=== PATIENT | female | born 1980 | race Caucasian/White ===

== ENCOUNTER 2016-04-08 10:30 | Inpatient (IN) | payer OTHER ==
[2016-04-08 11:30] VITALS: BMI 22.3
--- NOTE | 2016-04-08 12:12 | HP ---
COWS - Scale Resting Pulse: 1= [place] 81-100 Sweatin= Chills/Flushing Restless Observation: 3= Extraneous Movement Pupil Size: 2= Moderately Dilated Bone or Joint Aches: 4=Acute Joint/Muscle Pain Runny Nose/ Eye Tearin= Runny Nose/Eyes GI Upset > 30mins: 1= Stomach Cramp Tremor Observation: 2= Slight Tremor Visible Yawning Observation: 2= >3x During Session Anxiety or Irritability: 2=Irritable/Anxious Goose Flesh Skin: 0=Smooth Skin COWS Score: 20 Admission ROS S - HPI Chief Complaint: DETOX TX FOR HEROIN AND COCAINE DEPENDENCE Allergies/Adverse Reactions: Allergies Allergy/AdvReac Type Severity Reaction Status Date / Time Sulfa (Sulfonamide Allergy Hives Verified 04/08/16 11:46 Antibiotics) walnut Allergy Rash Verified 04/08/16 11:46 History of Present Illness: 35 Y/O FEMALE WITH A HX OF HEROIN AND COCAINE DEPENDENCE SEEKING DETOX TX. PT HAS PREVOUS EPISODES OF DRUG TX. Exam Limitations: No Limitations - Ebola screening Have you traveled outside of the country in the last 21 days: No Have you had contact with anyone from an Ebola affected area: No Have you been sick,other than usual withdrawal symptoms: No Do you have a fever: No - Review of Systems Constitutional: Chills, Night Sweats, Changes in sleep, Unintentional Wgt. Loss EENT: reports: Tearing, Nose Congestion, Dental Problems (UPPER PARTIAL DENTURES ) Respiratory: reports: No Symptoms reported Cardiac: reports: No Symptoms Reported GI: reports: Nausea : reports: No Symptoms Reported Musculoskeletal: reports: Back Pain, Joint Pain, Muscle Pain Integumentary: reports: Bruising (HANDS WITH IVD USE TRACKS) Neuro: reports: Tingling, Dizziness Endocrine: reports: No Symptoms Reported Hematology: reports: Anemia Psychiatric: reports: Orientated x3, Anxious, Depressed (ANX ANXIETY) Other Systems: Reviewed and Negative Patient History - Patient Medical History Hx Anemia: No Hx Asthma: No Hx Chronic Obstructive Pulmonary Disease (COPD): No Hx Cancer: No Hx Cardiac Disorders: No Hx Congestive Heart Failure: No Hx Hypertension: No Hx Hypercholesterolemia: No Hx Pacemaker: No HX Cerebrovascular Accident: No Hx Seizures: No Hx Dementia: No Hx Diabetes: No Hx Gastrointestinal Disorders: No Hx Liver Disease: No Hx Genitourinary Disorders: No Hx Sexually Transmitted Disorders: No Hx Renal Disease (ESRD): No Hx Thyroid Disease: No Hx Human Immunodeficiency Virus (HIV): No Hx Hepatitis C: Yes (NO TREATMENT) Hx Depression: Yes (NO MEDS) Hx Suicide Attempt: Yes (Tried to hang herself 8 yrs ago;DENIES CURRENT S/I) Hx Bipolar Disorder: No Hx Schizophrenia: No - Patient Surgical History Past Surgical History: Yes Hx Neurologic Surgery: No Hx Cataract Extraction: No Hx Cardiac Surgery: No Hx Lung Surgery: No Hx Breast Surgery: No Hx Breast Biopsy: No Hx Abdominal Surgery: No Hx Appendectomy: No Hx Cholecystectomy: No Hx Genitourinary Surgery: No Hx Section: Yes (17 YRS AGO) Hx Orthopedic Surgery: No Anesthesia Reaction: No - PPD History Previous Implant?: Yes Documented Results: Positive w/o proof Implanted On Prior [facility] Admission?: No Date: 11/26/15 Results: 0MM PPD to be Administered?: No - Reproductive History Patient is a Female of Child Bearing Age (11 -55 yrs old): Yes Last Menstrual Period: 03/10/16 Patient : No - Smoking Cessation Smoking history: Current every day smoker Have you smoked in the past 12 months: Yes Aproximately how many cigarettes per day: 20 Cigars Per Day: 0 Hx Chewing Tobacco Use: No Initiated information on smoking cessation: Yes 'Breaking Loose' booklet given: 04/08/16 - Substance & Tx. History Hx Alcohol Use: No (DENIES) Hx Substance Use: Yes (HEROIN/STREET METHADONE/COCAINE) Substance Use Type: Cocaine, Heroin, Opiates Hx Substance Use Treatment: Yes ([facility]-DETOX) - Substances Abused Heroin Route: Injection Frequency: Daily Amount used: 10-12 BAGS Age of first use: 15 Date of Last Use: 04/08/16 Cocaine Route: Injection Frequency: Daily Amount used: 6-8 BAGS Age of first use: 20 Date of Last Use: 04/08/16 Family Disease History - Family Disease History Family Disease History: Diabetes: Mother (HTN), Other: Mother Admission Physical Exam BHS - Vital Signs Vital Signs: Vital Signs - 24 hr 04/08/16 11:27 Temperature 96.4 F L Pulse Rate 88 Respiratory 19 Rate Blood Pressure 127/91 - Physical General Appearance: Yes: Moderate Distress, Irritable, Anxious HEENTM: Yes: EOMI, Normocephalic, GENIE, Pharynx Normal Respiratory: Yes: Chest Non-Tender, Lungs Clear, Normal Breath Sounds, No Respiratory Distress Neck: Yes: Supple, Trachea in good position Breast: Yes: Breast Exam Deferred Cardiology: Yes: Regular Rhythm, Regular Rate, S1, S2 Abdominal: Yes: Normal Bowel Sounds, Non Tender, Soft Genitourinary: Yes: Other (N/C) Back: Yes: Within Normal Limits Musculoskeletal: Yes: full range of Motion, Gait Steady Extremities: Yes: Normal Range of Motion, Non-Tender Neurological: Yes: cost control analyst II-XII NML intact, Fully Oriented, Alert, Motor Strength 5/5 Integumentary: Yes: Dry, Warm, Track Wilson Lymphatic: Yes: Within Normal Limits - Diagnostic (1) Opioid dependence with withdrawal Current Visit: Yes Status: Acute (2) Hepatitis C carrier Current Visit: Yes Status: Chronic (3) Cocaine dependence, uncomplicated Current Visit: Yes Status: Acute Cleared for Admission [facility] - Detox or Rehab [facility] Level of Care: Medically Managed Detox Regimen/Protocol: Methadone [facility] Breath Alcohol Content Breath Alcohol Content: 0 Urine Pregancy Test - Result Urine Test Results: Negative- NO Line Present Urine Drug Screen - Results Drug Screen Negative: No Urine Drug Screen Results: LENORE-Cocaine, OPI-Opiates, MET-Methamphetamine, MTD- Methadone
[2016-04-08] MEDS ORDERED: MENTHOL/PHENOL 1 EACH UD MM PRN (12:18)
[2016-04-08] MEDS ORDERED: MAGNESIUM CITRATE 300 ML BOTTLE PO PRN (12:18)
[2016-04-08] MEDS ORDERED: LOPERAMIDE HCL 2 MG CAPSULE PO PRN (12:18)
[2016-04-08] MEDS ORDERED: guaiFENesin/D-METHORPHAN HB 10 ML UNIT-DOSE CUPS PO PRN (12:18)
[2016-04-08] MEDS ORDERED: ACETAMINOPHEN 325 MG TABLET (FP) PO PRN (12:18)
[2016-04-08] MEDS ORDERED: MAGNESIUM HYDROX 2400MG/30ML ORAL SUSPENSION 30 ML CUP PO PRN (12:18)
[2016-04-08] MEDS ORDERED: P-EPHED 60MG/TRIPROLIDI 2.5MG TABLET PO PRN (12:18)
[2016-04-08] MEDS ORDERED: NICOTINE POLACRILEX 4 MG GUM BUC PRN (12:18)
[2016-04-08] MEDS ORDERED: IBUPROFEN 400 MG TABLET (FP) PO PRN (12:18)
[2016-04-08] MEDS ORDERED: MAG HYDROX/AL HYDROX/SIMETH 30 ML UNIT-DOSE CUP PO PRN (12:18)
[2016-04-08] MEDS ORDERED: METHADONE HCL 10 MG TABLET (FOR DETOX USE ONLY) PO ONE ×2 (13:05→23:00)
[2016-04-08] MEDS: diazePAM 5 MG TABLET PO PRN ×2 (13:46→22:27)
[2016-04-08] MEDS: NICOTINE 21 MG/24 HOURS TOPICAL PATCH TD SCH (13:47)
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
[2016-04-08] MEDS: ESCITALOPRAM OXALATE 10 MG TABLET (FP) PO SCH (15:10)
[2016-04-08] MEDS: ARIPiprazole 15 MG TABLET PO SCH (15:10)
--- NOTE | 2016-04-08 15:48 | EKG ---
Test Reason : Blood Pressure : / mmHG Vent. Rate : 079 BPM Atrial Rate : 079 BPM P-R Int : 136 ms QRS Dur : 094 ms QT Int : 412 ms P-R-T Axes : 074 077 032 degrees QTc Int : 472 ms NORMAL SINUS RHYTHM NORMAL ECG NO PREVIOUS ECGS AVAILABLE Confirmed by LIO BECKER, YAJAIRA ([id number]) on 04/08/2016 3:48:20 PM Referred By: Valentin Tenorio Confirmed By:YAJAIRA VACA MD
[2016-04-08 16:30] LABS: URINE APPEARANCE CLEAR; URINE BILIRUBIN NEGATIVE (NEGATIVE); URINE BLOOD NEGATIVE (NEGATIVE); URINE COLOR YELLOW; URINE GLUCOSE (UA) NEGATIVE (NEGATIVE); URINE KETONE NEGATIVE (NEGATIVE); URINE LEUK ESTERASE NEGATIVE (NEGATIVE); URINE NITRITE NEGATIVE (NEGATIVE); URINE PROTEIN NEGATIVE (NEGATIVE); URINE UROBILINOGEN NEGATIVE E.U./dl (0.2-1.0)
[2016-04-08] MEDS: THIAMINE HCL 100 MG TABLET (FP) PO SCH (22:27)
[2016-04-08] MEDS: QUEtiapine FUMARATE 100 MG TABLET (FP) PO SCH (22:28)
[2016-04-09] MEDS: diazePAM 5 MG TABLET PO PRN ×3 (08:36→22:21)
[2016-04-09 09:47] LABS: MCH 31.1 pg (25.7-33.7); MCHC 33.5 g/dl (32.0-36.0); MEAN CELL VOLUME 92.7 fl (80-96); MEAN PLT VOLUME 9.6 fl (7.5-11.1); PLATELET COUNT 159 K/MM3 (134-434); RDW 14.5 % (11.6-15.6); WHITE BLOOD COUNT 9.8 K/mm3 (4.0-10.0)
[2016-04-09] MEDS ORDERED: METHADONE HCL 10 MG TABLET (FOR DETOX USE ONLY) PO ONE (10:00)
[2016-04-09 10:18] LABS: ALBUMIN 4.3 g/dl (3.4-5.0); ALK PHOS 110 U/L (45-117); ANION GAP 8 (8-16); BILIRUBIN,TOTAL 1.2 mg/dL (0.2-1.0); CALCIUM 9.5 mg/dL (8.5-10.1); CO2 29 mmol/L (21-32); CREATININE 0.9 mg/dL (0.55-1.02); GLUCOSE,RANDOM 145 mg/dL (74-106); SGOT/AST 40 U/L (15-37); SGPT/ALT 39 U/L (12-78); TOT PROT 7.9 g/dl (6.4-8.2)
[2016-04-09] MEDS: ARIPiprazole 15 MG TABLET PO SCH (10:21)
[2016-04-09] MEDS: NICOTINE 21 MG/24 HOURS TOPICAL PATCH TD SCH (10:21)
[2016-04-09] MEDS: ESCITALOPRAM OXALATE 10 MG TABLET (FP) PO SCH (10:21)
[2016-04-09] MEDS: PRENATAL VITAMINS W/ FOLIC ACID TABLET (FP) PO SCH (10:21)
[2016-04-09] MEDS ORDERED: BISACODYL 5 MG TABLET.DR (FP) PO PRN (10:37)
--- NOTE | 2016-04-09 10:41 | PN ---
BHS COWS - Scale Resting Pulse: 1= [place] 81-100 Sweatin=Flushed/Facial Moisture Restless Observation: 1= Difficult to Sit Still Pupil Size: 0= Normal to Room Light Bone or Joint Aches: 2= Severe Diffuse Aches Runny Nose/ Eye Tearin= Runny Nose/Eyes GI Upset > 30mins: 1= Stomach Cramp Tremor Observation of Outstretched Hands: 2= Slight Tremor Visible Yawning Observation: 2= >3x During Session Anxiety or Irritability: 2=Irritable/Anxious Goose Flesh Skin: 3=Piloerection COWS Score: 18 BHS Progress Note (SOAP) Subjective: agitation cold sweats shakes body aches chills interrupted sleep constipation Objective: 04/09/16 10:39 Vital Signs Temperature 98.2 F 04/09/16 09:40 Pulse Rate 90 04/09/16 09:40 Respiratory Rate 18 04/09/16 09:40 Blood Pressure 134/83 04/09/16 09:40 O2 Sat by Pulse Oximetry (%) Laboratory Tests 04/08/16 04/09/16 04/09/16 15:00 06:00 06:00 WBC 9.8 D RBC 4.87 Hgb 15.1 Hct 45.2 MCV 92.7 MCHC 33.5 RDW 14.5 Plt Count 159 MPV 9.6 Sodium 139 Potassium 4.2 Chloride 102 Carbon Dioxide 29 Anion Gap 8 BUN 19 H D Creatinine 0.9 Creat Clearance w eGFR > 60 Random Glucose 145 H D Calcium 9.5 Total Bilirubin 1.2 H D AST 40 H ALT 39 Alkaline Phosphatase 110 Total Protein 7.9 Albumin 4.3 D Urine Color Yellow Urine Appearance Clear Urine pH 5.0 Ur Specific [place] 1.021 Urine Protein Negative Urine Glucose (UA) Negative Urine Ketones Negative Urine Blood Negative Urine Nitrite Negative Urine Bilirubin Negative Urine Urobilinogen Negative Ur Leukocyte Esterase Negative awake/alert ambulating no acute distress Assessment: 04/09/16 10:40 withdrawal sx Plan: continue detox increase fluids dulcolax prn
[2016-04-09] MEDS: QUEtiapine FUMARATE 100 MG TABLET (FP) PO SCH (22:21)
[2016-04-09] MEDS: THIAMINE HCL 100 MG TABLET (FP) PO SCH (22:21)
[2016-04-09] MEDS: diphenhydrAMINE HCL 50 MG CAPSULE PO PRN (22:21)
[2016-04-10] MEDS: diazePAM 5 MG TABLET PO PRN ×3 (09:05→19:42)
--- NOTE | 2016-04-10 09:50 | PN ---
BHS COWS - Scale Resting Pulse: 1= [place] 81-100 Sweatin= Chills/Flushing Restless Observation: 1= Difficult to Sit Still Pupil Size: 1= Pupils >than Normal Bone or Joint Aches: 2= Severe Diffuse Aches Runny Nose/ Eye Tearin= Nasal Congestion GI Upset > 30mins: 1= Stomach Cramp Tremor Observation of Outstretched Hands: 1= Tremor [place], Not Seen Yawning Observation: 0= None Anxiety or Irritability: 1=Feels Anxious/Irritable Goose Flesh Skin: 0=Smooth Skin COWS Score: 10 BHS Progress Note (SOAP) Subjective: better, interrupted sleep, sweats, lbp Objective: 04/10/16 09:49 Vital Signs Temperature 97.7 F 04/10/16 06:34 Pulse Rate 73 04/10/16 06:34 Respiratory Rate 18 04/10/16 06:34 Blood Pressure 120/84 04/10/16 06:34 O2 Sat by Pulse Oximetry (%) Laboratory Tests 04/08/16 04/09/16 04/09/16 15:00 06:00 06:00 WBC 9.8 D RBC 4.87 Hgb 15.1 Hct 45.2 MCV 92.7 MCHC 33.5 RDW 14.5 Plt Count 159 MPV 9.6 Sodium 139 Potassium 4.2 Chloride 102 Carbon Dioxide 29 Anion Gap 8 BUN 19 H D Creatinine 0.9 Creat Clearance w eGFR > 60 Random Glucose 145 H D Calcium 9.5 Total Bilirubin 1.2 H D AST 40 H ALT 39 Alkaline Phosphatase 110 Total Protein 7.9 Albumin 4.3 D Urine Color Yellow Urine Appearance Clear Urine pH 5.0 Ur Specific [place] 1.021 Urine Protein Negative Urine Glucose (UA) Negative Urine Ketones Negative Urine Blood Negative Urine Nitrite Negative Urine Bilirubin Negative Urine Urobilinogen Negative Ur Leukocyte Esterase Negative RPR Titer 04/09/16 06:00 WBC RBC Hgb Hct MCV MCHC RDW Plt Count MPV Sodium Potassium Chloride Carbon Dioxide Anion Gap BUN Creatinine Creat Clearance w eGFR Random Glucose Calcium Total Bilirubin AST ALT Alkaline Phosphatase Total Protein Albumin Urine Color Urine Appearance Urine pH Ur Specific [place] Urine Protein Urine Glucose (UA) Urine Ketones Urine Blood Urine Nitrite Urine Bilirubin Urine Urobilinogen Ur Leukocyte Esterase RPR Titer Nonreactive 04/10/16 11:58 pt aox3 in nad Assessment: 04/10/16 09:49 withdrawl sx;s 04/10/16 11:58 04/10/16 11:58 lbp Plan: cont. detox increase fluids lidopatch/d
[2016-04-10] MEDS ORDERED: METHADONE HCL 5 MG TABLET (FOR DETOX USE ONLY) PO ONE (10:00)
[2016-04-10] MEDS: ARIPiprazole 15 MG TABLET PO SCH (10:10)
[2016-04-10] MEDS: ESCITALOPRAM OXALATE 10 MG TABLET (FP) PO SCH (10:11)
[2016-04-10] MEDS: NICOTINE 21 MG/24 HOURS TOPICAL PATCH TD SCH (10:11)
[2016-04-10] MEDS: PRENATAL VITAMINS W/ FOLIC ACID TABLET (FP) PO SCH (10:12)
[2016-04-10] MEDS ORDERED: LIDOCAINE 5% TOPICAL PATCH TP ONE (10:14)
[2016-04-10] MEDS: THIAMINE HCL 100 MG TABLET (FP) PO SCH (22:15)
[2016-04-10] MEDS: QUEtiapine FUMARATE 100 MG TABLET (FP) PO SCH (22:15)
[2016-04-10] MEDS: diphenhydrAMINE HCL 50 MG CAPSULE PO PRN (22:16)
[2016-04-11] MEDS: diazePAM 5 MG TABLET PO PRN (07:50)
[2016-04-11] MEDS ORDERED: METHADONE HCL 5 MG TABLET (FOR DETOX USE ONLY) PO ONE (10:00)
[2016-04-11] MEDS: LIDOCAINE 5% TOPICAL PATCH TP SCH (10:08)
[2016-04-11] MEDS: PRENATAL VITAMINS W/ FOLIC ACID TABLET (FP) PO SCH (10:09)
[2016-04-11] MEDS: ARIPiprazole 15 MG TABLET PO SCH (10:09)
[2016-04-11] MEDS: NICOTINE 21 MG/24 HOURS TOPICAL PATCH TD SCH (10:10)
[2016-04-11] MEDS: ESCITALOPRAM OXALATE 10 MG TABLET (FP) PO SCH (10:10)
--- NOTE | 2016-04-11 12:28 | PN ---
BHS Progress Note (SOAP) Subjective: Interrupted sleep, Night Sweating, Anxious, Nausea, Back Ache. Objective: Pt. A & O X 3, Observed Ambulating on Unit. 04/11/16 12:25 Vital Signs Temperature 97.3 F L 04/11/16 09:38 Pulse Rate 115 H 04/11/16 09:38 Respiratory Rate 18 04/11/16 09:38 Blood Pressure 141/79 04/11/16 09:38 O2 Sat by Pulse Oximetry (%) Laboratory Last Values WBC 9.8 K/mm3 (4.0-10.0) D 04/09/16 06:00 RBC 4.87 M/mm3 (3.60-5.2) 04/09/16 06:00 Hgb 15.1 GM/dL (10.7-15.3) 04/09/16 06:00 Hct 45.2 % (32.4-45.2) 04/09/16 06:00 MCV 92.7 fl (80-96) 04/09/16 06:00 MCHC 33.5 g/dl (32.0-36.0) 04/09/16 06:00 RDW 14.5 % (11.6-15.6) 04/09/16 06:00 Plt Count 159 K/MM3 (134-434) 04/09/16 06:00 MPV 9.6 fl (7.5-11.1) 04/09/16 06:00 Sodium 139 mmol/L (136-145) 04/09/16 06:00 Potassium 4.2 mmol/L (3.5-5.1) 04/09/16 06:00 Chloride 102 mmol/L (98-107) 04/09/16 06:00 Carbon Dioxide 29 mmol/L (21-32) 04/09/16 06:00 Anion Gap 8 (8-16) 04/09/16 06:00 BUN 19 mg/dL (7-18) H D 04/09/16 06:00 Creatinine 0.9 mg/dL (0.55-1.02) 04/09/16 06:00 Creat Clearance w eGFR > 60 (>60) 04/09/16 06:00 Random Glucose 145 mg/dL (74-106) H D 04/09/16 06:00 Calcium 9.5 mg/dL (8.5-10.1) 04/09/16 06:00 Total Bilirubin 1.2 mg/dL (0.2-1.0) H D 04/09/16 06:00 AST 40 U/L (15-37) H 04/09/16 06:00 ALT 39 U/L (12-78) 04/09/16 06:00 Alkaline Phosphatase 110 U/L (45-117) 04/09/16 06:00 Total Protein 7.9 g/dl (6.4-8.2) 04/09/16 06:00 Albumin 4.3 g/dl (3.4-5.0) D 04/09/16 06:00 Urine Color Yellow 04/08/16 15:00 Urine Appearance Clear 04/08/16 15:00 Urine pH 5.0 (5.0-8.0) 04/08/16 15:00 Ur Specific [place] 1.021 (1.001-1.035) 04/08/16 15:00 Urine Protein Negative (NEGATIVE) 04/08/16 15:00 Urine Glucose (UA) Negative (NEGATIVE) 04/08/16 15:00 Urine Ketones Negative (NEGATIVE) 04/08/16 15:00 Urine Blood Negative (NEGATIVE) 04/08/16 15:00 Urine Nitrite Negative (NEGATIVE) 04/08/16 15:00 Urine Bilirubin Negative (NEGATIVE) 04/08/16 15:00 Urine Urobilinogen Negative E.U./dl (0.2-1.0) 04/08/16 15:00 Ur Leukocyte Esterase Negative (NEGATIVE) 04/08/16 15:00 RPR Titer Nonreactive (NONREACTIVE) 04/09/16 06:00 LABS NOTED. Assessment: 04/11/16 12:26 WITHDRAWAL SYMPTOMS. Plan: CONTINUE DETOX. ADVISED PT. TO FOLLOW-UP WITH [facility] STRIPPER AFTER DISCHARGE FROM DETOX FOR GENERAL MEDICAL ASSESSMENT AND FOR ABNORMAL LAB VALUES.
[2016-04-11] MEDS: hydrOXYzine PAMOATE 50 MG CAPSULE (FP) PO PRN ×2 (18:16→22:27)
[2016-04-11] MEDS: QUEtiapine FUMARATE 100 MG TABLET (FP) PO SCH (22:27)
[2016-04-11] MEDS: THIAMINE HCL 100 MG TABLET (FP) PO SCH (22:27)
[2016-04-12] MEDS: hydrOXYzine PAMOATE 50 MG CAPSULE (FP) PO PRN (08:48)
[2016-04-12] MEDS ORDERED: METHADONE HCL 10 MG TABLET (FOR DETOX USE ONLY) PO ONE (10:00)
[2016-04-12] MEDS: ESCITALOPRAM OXALATE 10 MG TABLET (FP) PO SCH (10:28)
[2016-04-12] MEDS: ARIPiprazole 15 MG TABLET PO SCH (10:28)
[2016-04-12] MEDS: PRENATAL VITAMINS W/ FOLIC ACID TABLET (FP) PO SCH (10:28)
[2016-04-12] MEDS: LIDOCAINE 5% TOPICAL PATCH TP SCH (10:31)
[2016-04-12] MEDS: NICOTINE 21 MG/24 HOURS TOPICAL PATCH TD SCH (10:31)
--- NOTE | 2016-04-12 10:42 | PN ---
BHS Progress Note (SOAP) Subjective: POOR SLEEP, ANXIOUS, SHAKY Objective: 04/12/16 10:42 Laboratory Tests 04/08/16 04/09/16 04/09/16 15:00 06:00 06:00 WBC 9.8 D RBC 4.87 Hgb 15.1 Hct 45.2 MCV 92.7 MCHC 33.5 RDW 14.5 Plt Count 159 MPV 9.6 Sodium 139 Potassium 4.2 Chloride 102 Carbon Dioxide 29 Anion Gap 8 BUN 19 H D Creatinine 0.9 Creat Clearance w eGFR > 60 Random Glucose 145 H D Calcium 9.5 Total Bilirubin 1.2 H D AST 40 H ALT 39 Alkaline Phosphatase 110 Total Protein 7.9 Albumin 4.3 D Urine Color Yellow Urine Appearance Clear Urine pH 5.0 Ur Specific [place] 1.021 Urine Protein Negative Urine Glucose (UA) Negative Urine Ketones Negative Urine Blood Negative Urine Nitrite Negative Urine Bilirubin Negative Urine Urobilinogen Negative Ur Leukocyte Esterase Negative RPR Titer 04/09/16 06:00 WBC RBC Hgb Hct MCV MCHC RDW Plt Count MPV Sodium Potassium Chloride Carbon Dioxide Anion Gap BUN Creatinine Creat Clearance w eGFR Random Glucose Calcium Total Bilirubin AST ALT Alkaline Phosphatase Total Protein Albumin Urine Color Urine Appearance Urine pH Ur Specific [place] Urine Protein Urine Glucose (UA) Urine Ketones Urine Blood Urine Nitrite Urine Bilirubin Urine Urobilinogen Ur Leukocyte Esterase RPR Titer Nonreactive Vital Signs - 24 hr 04/11/16 04/11/16 04/11/16 15:21 20:28 22:39 Temperature 98.8 F 98.1 F 98.6 F Pulse Rate 93 H 76 109 H Respiratory 18 16 20 Rate Blood Pressure 136/78 120/81 135/77 04/12/16 04/12/16 04/12/16 00:30 03:30 06:00 Temperature 97.7 F Pulse Rate 81 Respiratory 18 18 18 Rate Blood Pressure 123/67 Assessment: 04/12/16 10:42 ONGOING WITHDRAWAL Plan: CONTINUE DETOX PROTOCOL
[2016-04-12] MEDS: THIAMINE HCL 100 MG TABLET (FP) PO SCH (22:33)
[2016-04-12] MEDS: QUEtiapine FUMARATE 100 MG TABLET (FP) PO SCH (22:33)
[2016-04-13] MEDS ORDERED: METHADONE HCL 5 MG TABLET (FOR DETOX USE ONLY) PO ONE (06:00)
--- NOTE | 2016-04-13 08:34 | PN ---
S Progress Note (SOAP) Subjective: ALERT,NO COMPLAINT Objective: 04/13/16 08:33 Vital Signs Temperature 98.2 F 04/13/16 06:49 Pulse Rate 88 04/13/16 06:49 Respiratory Rate 18 04/13/16 06:49 Blood Pressure 101/69 04/13/16 06:49 O2 Sat by Pulse Oximetry (%) Assessment: 04/13/16 08:33 DETOX COMPLETED,NO WITHDRAWAL SYMPTOM Plan: DISCHARGE TODAY,FOLLOW UP WITH AFTER CARE PROGRAM ARRANGEMENT
--- NOTE | 2016-04-13 08:39 | DS ---
[facility] Detox Discharge Summary Admission Date: 04/08/16 Discharge Date: 04/13/16 - History Present History: Cocaine Dependence, Opioid Dependence Additional Comments: FOLLOW UP WITH AFTER CARE PROGRAM ARRANGEMENT Pertinent Past History: HEPATITIS C DEPRESSION - Physical Exam Results Vital Signs: Vital Signs Temperature 98.2 F 04/13/16 06:49 Pulse Rate 88 04/13/16 06:49 Respiratory Rate 18 04/13/16 06:49 Blood Pressure 101/69 04/13/16 06:49 O2 Sat by Pulse Oximetry (%) Pertinent Admission Physical Exam Findings: WITHDRAWAL SYMPTOM - Treatment Hospital Course: Detox Protocol Followed, Detoxed Safely, Responded well, Discharged Condition Good Patient has Accepted a Rehab Referral to: DECLNED - Medication Discharge Medications: Ambulatory Orders Aripiprazole [Abilify -] 10 mg PO DAILY #30 tablet 03/19/14 Escitalopram Oxalate [Lexapro -] 10 mg PO DAILY #30 tablet 11/25/15 Quetiapine Fumarate [Seroquel] 100 tab PO HS #30 tablet 11/25/15 Aripiprazole [Abilify -] 15 mg PO DAILY #30 tablet 04/08/16 Escitalopram Oxalate [Lexapro -] 10 mg PO DAILY #30 tablet 04/08/16 Quetiapine Fumarate [Seroquel] 100 mg PO HS #30 tablet 04/08/16 - AMA Did Patient Leave Against Medical Advice: No
[2016-04-13 10:11] VITALS: BP 131/80; PULSE 106; TEMP 98.6
== END 2016-04-13 09:10 | disposition home or self-care (01) | DRG 773 ==
LOC: YASAS 10:30 → Y6N 11:59
PROVIDERS: ADMIT Internal Medicine Addiction Medicine; ATTEND Internal Medicine Addiction Medicine
PROC: HZ2ZZZZ Detoxification Services for Substance Abuse Treatment (ICD-10-PCS; principal; 2016-04-13)
DX: F11.23 Opioid dependence with withdrawal (principal); F14.20 Cocaine dependence, uncomplicated; B19.20 Unspecified viral hepatitis C without hepatic coma; B18.2 Chronic viral hepatitis C
CPT/HCPCS: 36415; 71020-TC; 80053; 81003; 85027; 86593; 93005; 93010

== ENCOUNTER 2016-12-10 14:57 | Inpatient (IN) | payer OTHER ==
[2016-12-10 17:42] VITALS: BMI 21.2
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
[2016-12-10] MEDS ORDERED: MAG HYDROX/AL HYDROX/SIMETH 30 ML UNIT-DOSE CUP PO PRN (20:37)
[2016-12-10] MEDS ORDERED: NICOTINE POLACRILEX 2 MG GUM BUC PRN (20:37)
[2016-12-10] MEDS ORDERED: MAGNESIUM HYDROX 2400MG/30ML ORAL SUSPENSION 30 ML CUP PO PRN (20:37)
[2016-12-10] MEDS ORDERED: LOPERAMIDE HCL 2 MG CAPSULE PO PRN (20:37)
[2016-12-10] MEDS ORDERED: P-EPHED 60MG/TRIPROLIDI 2.5MG TABLET PO PRN (20:37)
[2016-12-10] MEDS ORDERED: MENTHOL/PHENOL 1 EACH UD MM PRN (20:37)
[2016-12-10] MEDS ORDERED: ACETAMINOPHEN 325 MG TABLET (FP) PO PRN (20:37)
[2016-12-10] MEDS ORDERED: METHADONE HCL 10 MG TABLET (FOR DETOX USE ONLY) PO ONE ×2 (20:37→23:00)
[2016-12-10] MEDS ORDERED: IBUPROFEN 400 MG TABLET (FP) PO PRN (20:37)
[2016-12-10] MEDS ORDERED: MAGNESIUM CITRATE 300 ML BOTTLE PO PRN (20:37)
[2016-12-10] MEDS: diazePAM 5 MG TABLET PO PRN (21:24)
[2016-12-10] MEDS: NICOTINE 14 MG/24 HOURS TOPICAL PATCH TD SCH (21:38)
[2016-12-10] MEDS: OFLOXACIN 0.3% OPHTHALMIC SOLUTION 5 ML BOTTLE OD SCH (22:28)
[2016-12-10] MEDS: THIAMINE HCL 100 MG TABLET (FP) PO SCH (22:29)
[2016-12-10 23:20] LABS: URINE APPEARANCE CLOUDY; URINE BILIRUBIN NEGATIVE (NEGATIVE); URINE BLOOD NEGATIVE (NEGATIVE); URINE COLOR DKYELLOW; URINE GLUCOSE (UA) NEGATIVE (NEGATIVE); URINE KETONE NEGATIVE (NEGATIVE); URINE NITRITE NEGATIVE (NEGATIVE); URINE PROTEIN NEGATIVE (NEGATIVE); URINE UROBILINOGEN NEGATIVE mg/dL (0.2-1.0)
[2016-12-10 23:25] LABS: URINE LEUK ESTERASE 3+ (NEGATIVE)
[2016-12-10 23:41] LABS: CALCIUM OXALATE CRYSTALS RARE /hpf (NONE SEEN); URINE BACTERIA MODERATE /hpf (NONE SEEN); URINE MUCUS FEW; URINE RBC 9 /hpf (0-3); URINE WBC 36 /hpf (3-5)
[2016-12-11] MEDS: OFLOXACIN 0.3% OPHTHALMIC SOLUTION 5 ML BOTTLE OD SCH ×6 (01:23→20:02)
--- NOTE | 2016-12-11 07:35 | CONSULT ---
[facility] Psychiatric Consult - Data Date of interview: 12/11/16 Admission source: Silvina Identifying data: This is 36 uears olkd female with nistory of psychiatric admsision, history of MDD, intoxicated wwith: Opioids, Cocaine, Cannabis, Xanax and Nicotine Substance Abuse History: - Smoking Cessation. Smoking history: Current every day smoker. Have you smoked in the past 12 months: Yes. Aproximately how many cigarettes per day: 10. Cigars Per Day: 0. Hx Chewing Tobacco Use: No. Initiated information on smoking cessation: Yes. 'Breaking Loose' booklet given : 12/10/16. - Substances Abused. Heroin. Route: Injection. Frequency: Daily. Amount used: 15-20 bags. Age of first use: 15. Date of Last Use: 12/10. Non-Rx Methadone. Route: Oral. Frequency: 1-2 times per week. Amount used: 40mg. Age of first use: 26. Date of Last Use: 12/07/16. Cocaine. Route: Injection. Frequency: Daily. Amount used: $70- $80. Age of first use: 29. Date of Last Use: 12/10/16. Marijuana/Hashish. Route: Smoking. Frequency: Daily. Amount used: $20. Age of first use: 15. Date of Last Use: 12/10/16 Medical History: HepC+, OVARES POLYCYSRECTOMY HISTORY, HEMORRHOPIDS HISTORY Psychiatric History: Patient reports history of MDD, PTSD, reports taking priorm to admission: Abilify 10mg poqd. Seroquel 100mg po qhs. Lexapro 10mg poqd Physical/Sexual Abuse/Trauma History: Denies Additional Comment: Urine Drug Screen Results: LENORE-Cocaine, OPI-Opiates, MTD- Methadone Mental Status Exam - Mental Status Exam Alert and Oriented to: Person Patient Appearance: Unkempt Mood: Sad Affect: Flat Speech Pattern: Appropriate Voice Loudness: Mildly Soft/Quiet Thought Process: Goal Oriented Thought Disorder: Being Controlled Hallucinations: Denies Suicidal Ideation: Denies Homicidal Ideation: Denies Sleep: Difficulty falling asleep Appetite: Fair Muscle strength/Tone: Normal Gait/Station: Shuffling Additional Comments: Abilify 10mg poqd. Seroquel 100mg po qhs. Lexapro 10mg poqd Psychiatric Findings - Problem List ([place] 1, 2,3) (1) Benzodiazepine dependence Current Visit: No Status: Acute (2) Cannabis dependence Current Visit: No Status: Acute (3) Cocaine dependence, uncomplicated Current Visit: No Status: Acute (4) Opioid dependence with withdrawal Current Visit: No Status: Acute (5) Depression Current Visit: No Status: Chronic Qualifiers: (6) MDD (major depressive disorder), recurrent episode, severe Current Visit: No Status: Chronic (7) PTSD (post-traumatic stress disorder) Current Visit: No Status: Chronic - Initial Treatment Plan Initial Treatment Plan: Abilify 10mg poqd. Seroquel 100mg po qhs. Lexapro 10mg poqd
[2016-12-11 09:40] LABS: MCH 29.5 pg (25.7-33.7); MCHC 32.8 g/dl (32.0-36.0); MEAN CELL VOLUME 90.1 fl (80-96); MEAN PLT VOLUME 8.6 fl (7.5-11.1); PLATELET COUNT 222 K/MM3 (134-434); RDW 14.8 % (11.6-15.6); WHITE BLOOD COUNT 7.2 K/mm3 (4.0-10.0)
[2016-12-11] MEDS ORDERED: METHADONE HCL 10 MG TABLET (FOR DETOX USE ONLY) PO ONE (10:00)
[2016-12-11 10:06] LABS: ALBUMIN 3.3 g/dl (3.4-5.0); ALK PHOS 147 U/L (45-117); ANION GAP 3 (8-16); BILIRUBIN,TOTAL 0.8 mg/dL (0.2-1.0); CALCIUM 9.3 mg/dL (8.5-10.1); CO2 32 mmol/L (21-32); CREATININE 0.8 mg/dL (0.55-1.02); GLUCOSE,RANDOM 90 mg/dL (74-106); SGOT/AST 29 U/L (15-37); SGPT/ALT 36 U/L (12-78); TOT PROT 7.2 g/dl (6.4-8.2)
[2016-12-11] MEDS: PRENATAL VITAMINS W/ FOLIC ACID TABLET (FP) PO SCH (10:58)
[2016-12-11] MEDS: ARIPiprazole 10 MG TABLET PO SCH (10:58)
[2016-12-11] MEDS: diazePAM 5 MG TABLET PO PRN ×3 (10:58→22:38)
[2016-12-11] MEDS: ESCITALOPRAM OXALATE 10 MG TABLET (FP) PO SCH (10:58)
[2016-12-11] MEDS: NICOTINE 14 MG/24 HOURS TOPICAL PATCH TD SCH (10:59)
[2016-12-11 11:40] LABS: HIV 1 & 2 AB NEGATIVE; HIV 1 AGp24 NEGATIVE
--- NOTE | 2016-12-11 11:51 | EKG ---
Test Reason : Blood Pressure : / mmHG Vent. Rate : 065 BPM Atrial Rate : 065 BPM P-R Int : 138 ms QRS Dur : 090 ms QT Int : 444 ms P-R-T Axes : 073 083 045 degrees QTc Int : 461 ms NORMAL SINUS RHYTHM WITH SINUS ARRHYTHMIA NONSPECIFIC T WAVE ABNORMALITY PROLONGED QT ABNORMAL ECG WHEN COMPARED WITH ECG OF 08-APR-2016 13:51, NONSPECIFIC T WAVE ABNORMALITY NOW EVIDENT IN ANTERIOR LEADS Confirmed by ELISE BECKER, XIOMY ([id number]) on 12/11/2016 11:51:07 AM Referred By: Confirmed By:XIOMY OLIVARES MD
--- NOTE | 2016-12-11 13:30 | PN ---
BHS COWS - Scale Resting Pulse: 1= [place] 81-100 Sweatin= Chills/Flushing Restless Observation: 3= Extraneous Movement Pupil Size: 1= Pupils >than Normal Bone or Joint Aches: 2= Severe Diffuse Aches Runny Nose/ Eye Tearin= Runny Nose/Eyes GI Upset > 30mins: 2= Nausea/Diarrhea Tremor Observation of Outstretched Hands: 2= Slight Tremor Visible Yawning Observation: 1= 1-2x During Session Anxiety or Irritability: 2=Irritable/Anxious Goose Flesh Skin: 0=Smooth Skin COWS Score: 17 S Progress Note (SOAP) Subjective: alert,irritable,anxious,interrupted sleep,tremor,pain in the body and back Objective: 12/11/16 13:27 Vital Signs Temperature 98.2 F 12/11/16 10:44 Pulse Rate 83 12/11/16 10:44 Respiratory Rate 20 12/11/16 10:44 Blood Pressure 150/100 12/11/16 10:44 O2 Sat by Pulse Oximetry (%) ekg nsr with sinus arrhythmia non specific t wave no chest pain,no sob,no dizziness Laboratory Last Values WBC 7.2 K/mm3 (4.0-10.0) 12/11/16 07:00 RBC 5.15 M/mm3 (3.60-5.2) 12/11/16 07:00 Hgb 15.2 GM/dL (10.7-15.3) 12/11/16 07:00 Hct 46.4 % (32.4-45.2) H 12/11/16 07:00 MCV 90.1 fl (80-96) 12/11/16 07:00 MCH 29.5 pg (25.7-33.7) 12/11/16 07:00 MCHC 32.8 g/dl (32.0-36.0) 12/11/16 07:00 RDW 14.8 % (11.6-15.6) 12/11/16 07:00 Plt Count 222 K/MM3 (134-434) D 12/11/16 07:00 MPV 8.6 fl (7.5-11.1) D 12/11/16 07:00 Sodium 139 mmol/L (136-145) 12/11/16 07:00 Potassium 4.3 mmol/L (3.5-5.1) 12/11/16 07:00 Chloride 104 mmol/L (98-107) 12/11/16 07:00 Carbon Dioxide 32 mmol/L (21-32) 12/11/16 07:00 Anion Gap 3 (8-16) L 12/11/16 07:00 BUN 8 mg/dL (7-18) D 12/11/16 07:00 Creatinine 0.8 mg/dL (0.55-1.02) 12/11/16 07:00 Creat Clearance w eGFR > 60 (>60) 12/11/16 07:00 Random Glucose 90 mg/dL (74-106) D 12/11/16 07:00 Calcium 9.3 mg/dL (8.5-10.1) 12/11/16 07:00 Total Bilirubin 0.8 mg/dL (0.2-1.0) D 12/11/16 07:00 AST 29 U/L (15-37) D 12/11/16 07:00 ALT 36 U/L (12-78) 12/11/16 07:00 Alkaline Phosphatase 147 U/L (45-117) H D 12/11/16 07:00 Total Protein 7.2 g/dl (6.4-8.2) 12/11/16 07:00 Albumin 3.3 g/dl (3.4-5.0) L D 12/11/16 07:00 Urine Color Dkyellow 12/10/16 21:40 Urine Appearance Cloudy 12/10/16 21:40 Urine pH 5.0 (5.0-8.0) 12/10/16 21:40 Ur Specific [place] 1.020 (1.005-1.025) 12/10/16 21:40 Urine Protein Negative (NEGATIVE) 12/10/16 21:40 Urine Glucose (UA) Negative (NEGATIVE) 12/10/16 21:40 Urine Ketones Negative (NEGATIVE) 12/10/16 21:40 Urine Blood Negative (NEGATIVE) 12/10/16 21:40 Urine Nitrite Negative (NEGATIVE) 12/10/16 21:40 Urine Bilirubin Negative (NEGATIVE) 12/10/16 21:40 Urine Urobilinogen Negative mg/dL (0.2-1.0) 12/10/16 21:40 Urine RBC 9 /hpf (0-3) 12/10/16 21:40 Urine WBC 36 /hpf (3-5) 12/10/16 21:40 Ur Epithelial Cells Many /hpf (FEW) 12/10/16 21:40 Calcium Oxalate Crystal Rare /hpf (NONE SEEN) 12/10/16 21:40 Urine Bacteria Moderate /hpf (NONE SEEN) 12/10/16 21:40 Urine Mucus Few 12/10/16 21:40 RPR Titer Nonreactive (NONREACTIVE) 12/11/16 07:00 HIV 1&2 Antibody Screen Negative 12/11/16 07:00 HIV P24 Antigen Negative 12/11/16 07:00 Assessment: 12/11/16 13:29 withdrawal symptom Plan: withdrawal symptom,continue detox
[2016-12-11 16:57] LABS: URINE APPEARANCE TURBID; URINE BILIRUBIN NEGATIVE (NEGATIVE); URINE BLOOD NEGATIVE (NEGATIVE); URINE COLOR YELLOW; URINE GLUCOSE (UA) NEGATIVE (NEGATIVE); URINE KETONE NEGATIVE (NEGATIVE); URINE NITRITE NEGATIVE (NEGATIVE); URINE UROBILINOGEN 4.0 E.U/dl mg/dL (0.2-1.0)
[2016-12-11 16:58] LABS: URINE LEUK ESTERASE 1+ (NEGATIVE); URINE PROTEIN 1+ (NEGATIVE)
[2016-12-11 17:00] LABS: URINE MUCUS MANY; URINE RBC 5 /hpf (0-3); URINE WBC 37 /hpf (3-5)
[2016-12-11] MEDS: QUEtiapine FUMARATE 100 MG TABLET (FP) PO SCH (22:37)
[2016-12-11] MEDS: diphenhydrAMINE HCL 50 MG CAPSULE PO PRN (22:37)
[2016-12-11] MEDS: THIAMINE HCL 100 MG TABLET (FP) PO SCH (22:38)
[2016-12-12] MEDS: OFLOXACIN 0.3% OPHTHALMIC SOLUTION 5 ML BOTTLE OD SCH ×6 (01:23→22:36)
[2016-12-12] MEDS: guaiFENesin/D-METHORPHAN HB 10 ML UNIT-DOSE CUPS PO PRN ×4 (04:26→22:35)
[2016-12-12] MEDS ORDERED: METHADONE HCL 5 MG TABLET (FOR DETOX USE ONLY) PO ONE (10:00)
[2016-12-12] MEDS: ARIPiprazole 10 MG TABLET PO SCH (10:48)
[2016-12-12] MEDS: PRENATAL VITAMINS W/ FOLIC ACID TABLET (FP) PO SCH (10:48)
[2016-12-12] MEDS: NICOTINE 14 MG/24 HOURS TOPICAL PATCH TD SCH (10:48)
[2016-12-12] MEDS: ESCITALOPRAM OXALATE 10 MG TABLET (FP) PO SCH (10:48)
[2016-12-12] MEDS: diazePAM 5 MG TABLET PO PRN ×3 (10:51→22:34)
--- NOTE | 2016-12-12 12:19 | PN ---
BHS COWS - Scale Resting Pulse: 1= [place] 81-100 Sweatin=Flushed/Facial Moisture Restless Observation: 1= Difficult to Sit Still Pupil Size: 0= Normal to Room Light Bone or Joint Aches: 2= Severe Diffuse Aches Runny Nose/ Eye Tearin= Runny Nose/Eyes GI Upset > 30mins: 1= Stomach Cramp Tremor Observation of Outstretched Hands: 2= Slight Tremor Visible Yawning Observation: 2= >3x During Session Anxiety or Irritability: 2=Irritable/Anxious Goose Flesh Skin: 0=Smooth Skin COWS Score: 15 BHS Progress Note (SOAP) Subjective: agitation anxiety sweats shakes interrupted sleep Objective: 12/12/16 12:18 Vital Signs Temperature 98.1 F 12/12/16 11:19 Pulse Rate 92 H 12/12/16 11:19 Respiratory Rate 18 12/12/16 11:19 Blood Pressure 141/95 12/12/16 11:19 O2 Sat by Pulse Oximetry (%) Laboratory Tests 12/10/16 12/11/16 12/11/16 21:40 07:00 07:00 WBC 7.2 RBC 5.15 Hgb 15.2 Hct 46.4 H MCV 90.1 MCH 29.5 MCHC 32.8 RDW 14.8 Plt Count 222 D MPV 8.6 D Sodium Potassium Chloride Carbon Dioxide Anion Gap BUN Creatinine Creat Clearance w eGFR Random Glucose Calcium Total Bilirubin AST ALT Alkaline Phosphatase Total Protein Albumin Urine Color Dkyellow Urine Appearance Cloudy Urine pH 5.0 Ur Specific [place] 1.020 Urine Protein Negative Urine Glucose (UA) Negative Urine Ketones Negative Urine Blood Negative Urine Nitrite Negative Urine Bilirubin Negative Urine Urobilinogen Negative Urine RBC 9 Urine WBC 36 Ur Epithelial Cells Many Calcium Oxalate Crystal Rare Urine Bacteria Moderate Urine Mucus Few RPR Titer HIV 1&2 Antibody Screen Negative HIV P24 Antigen Negative 12/11/16 12/11/16 12/11/16 07:00 07:00 15:20 WBC RBC Hgb Hct MCV MCH MCHC RDW Plt Count MPV Sodium 139 Potassium 4.3 Chloride 104 Carbon Dioxide 32 Anion Gap 3 L BUN 8 D Creatinine 0.8 Creat Clearance w eGFR > 60 Random Glucose 90 D Calcium 9.3 Total Bilirubin 0.8 D AST 29 D ALT 36 Alkaline Phosphatase 147 H D Total Protein 7.2 Albumin 3.3 L D Urine Color Yellow Urine Appearance Turbid Urine pH 7.0 D Ur Specific [place] 1.020 Urine Protein 1+ H Urine Glucose (UA) Negative Urine Ketones Negative Urine Blood Negative Urine Nitrite Negative Urine Bilirubin Negative Urine Urobilinogen 4.0 e.u/dl H Urine RBC 5 Urine WBC 37 Ur Epithelial Cells Moderate Calcium Oxalate Crystal Urine Bacteria Urine Mucus Many RPR Titer Nonreactive HIV 1&2 Antibody Screen HIV P24 Antigen repeat u/a aaox3 ambulating no acute distress Assessment: 12/12/16 12:18 withdrawal sx Plan: continue detox increase fluids ensure bid
[2016-12-12] MEDS: diphenhydrAMINE HCL 50 MG CAPSULE PO PRN (22:33)
[2016-12-12] MEDS: THIAMINE HCL 100 MG TABLET (FP) PO SCH (22:34)
[2016-12-12] MEDS: QUEtiapine FUMARATE 100 MG TABLET (FP) PO SCH (22:34)
[2016-12-13] MEDS: OFLOXACIN 0.3% OPHTHALMIC SOLUTION 5 ML BOTTLE OD SCH ×6 (01:43→22:28)
[2016-12-13] MEDS ORDERED: METHADONE HCL 5 MG TABLET (FOR DETOX USE ONLY) PO ONE (10:00)
[2016-12-13] MEDS: ESCITALOPRAM OXALATE 10 MG TABLET (FP) PO SCH (10:52)
[2016-12-13] MEDS: cloNIDine HCL 0.1 MG TABLET PO SCH ×2 (10:52→22:29)
[2016-12-13] MEDS: NICOTINE 14 MG/24 HOURS TOPICAL PATCH TD SCH (10:52)
[2016-12-13] MEDS: PRENATAL VITAMINS W/ FOLIC ACID TABLET (FP) PO SCH (10:52)
[2016-12-13] MEDS: diazePAM 5 MG TABLET PO PRN ×2 (10:52→18:07)
[2016-12-13] MEDS: ARIPiprazole 10 MG TABLET PO SCH (10:52)
[2016-12-13] MEDS: guaiFENesin/D-METHORPHAN HB 10 ML UNIT-DOSE CUPS PO PRN (11:17)
--- NOTE | 2016-12-13 12:27 | PN ---
BHS Progress Note (SOAP) Subjective: I have a burning and frequency with urination sweats shakes interrupted sleep Objective: 12/13/16 12:24 Vital Signs Temperature 98.6 F 12/13/16 10:00 Pulse Rate 99 H 12/13/16 10:00 Respiratory Rate 18 12/13/16 10:00 Blood Pressure 146/88 12/13/16 10:00 O2 Sat by Pulse Oximetry (%) Laboratory Tests 12/10/16 12/11/16 12/11/16 21:40 07:00 07:00 WBC 7.2 RBC 5.15 Hgb 15.2 Hct 46.4 H MCV 90.1 MCH 29.5 MCHC 32.8 RDW 14.8 Plt Count 222 D MPV 8.6 D Sodium Potassium Chloride Carbon Dioxide Anion Gap BUN Creatinine Creat Clearance w eGFR Random Glucose Calcium Total Bilirubin AST ALT Alkaline Phosphatase Total Protein Albumin Urine Color Dkyellow Urine Appearance Cloudy Urine pH 5.0 Ur Specific [place] 1.020 Urine Protein Negative Urine Glucose (UA) Negative Urine Ketones Negative Urine Blood Negative Urine Nitrite Negative Urine Bilirubin Negative Urine Urobilinogen Negative Urine RBC 9 Urine WBC 36 Ur Epithelial Cells Many Calcium Oxalate Crystal Rare Urine Bacteria Moderate Urine Mucus Few RPR Titer HIV 1&2 Antibody Screen Negative HIV P24 Antigen Negative 12/11/16 12/11/16 12/11/16 07:00 07:00 15:20 WBC RBC Hgb Hct MCV MCH MCHC RDW Plt Count MPV Sodium 139 Potassium 4.3 Chloride 104 Carbon Dioxide 32 Anion Gap 3 L BUN 8 D Creatinine 0.8 Creat Clearance w eGFR > 60 Random Glucose 90 D Calcium 9.3 Total Bilirubin 0.8 D AST 29 D ALT 36 Alkaline Phosphatase 147 H D Total Protein 7.2 Albumin 3.3 L D Urine Color Yellow Urine Appearance Turbid Urine pH 7.0 D Ur Specific Page 1.020 Urine Protein 1+ H Urine Glucose (UA) Negative Urine Ketones Negative Urine Blood Negative Urine Nitrite Negative Urine Bilirubin Negative Urine Urobilinogen 4.0 e.u/dl H Urine RBC 5 Urine WBC 37 Ur Epithelial Cells Moderate Calcium Oxalate Crystal Urine Bacteria Urine Mucus Many RPR Titer Nonreactive HIV 1&2 Antibody Screen HIV P24 Antigen aaox3 ambulating no acute distress increase wcb in urine will order macrobid 50mg [id number] Assessment: 12/13/16 12:26 withdrawal sx Plan: continue detox increase fluids continue abx
[2016-12-13] MEDS: NITROFURANTOIN MACROCRYSTAL 50 MG CAPSULE (FP) PO SCH (17:45)
[2016-12-13] MEDS: QUEtiapine FUMARATE 100 MG TABLET (FP) PO SCH (22:28)
[2016-12-13] MEDS: THIAMINE HCL 100 MG TABLET (FP) PO SCH (22:29)
[2016-12-14] MEDS: NITROFURANTOIN MACROCRYSTAL 50 MG CAPSULE (FP) PO SCH ×5 (01:25→23:10)
[2016-12-14] MEDS: OFLOXACIN 0.3% OPHTHALMIC SOLUTION 5 ML BOTTLE OD SCH ×6 (01:25→22:54)
[2016-12-14] MEDS ORDERED: METHADONE HCL 10 MG TABLET (FOR DETOX USE ONLY) PO ONE (10:00)
[2016-12-14] MEDS: ESCITALOPRAM OXALATE 10 MG TABLET (FP) PO SCH (10:52)
[2016-12-14] MEDS: PRENATAL VITAMINS W/ FOLIC ACID TABLET (FP) PO SCH (10:52)
[2016-12-14] MEDS: cloNIDine HCL 0.1 MG TABLET PO SCH ×2 (10:52→22:54)
[2016-12-14] MEDS: NICOTINE 14 MG/24 HOURS TOPICAL PATCH TD SCH (10:53)
[2016-12-14] MEDS: ARIPiprazole 10 MG TABLET PO SCH (11:21)
--- NOTE | 2016-12-14 14:08 | PN ---
BHS Progress Note (SOAP) Subjective: Sweating,interrupted sleep,restless Objective: 12/14/16 14:04 Vital Signs - 8 hr 12/14/16 10:00 Temperature 97.9 F Pulse Rate 116 H Respiratory 18 Rate Blood Pressure 115/88 Laboratory Last Values WBC 7.2 K/mm3 (4.0-10.0) 12/11/16 07:00 RBC 5.15 M/mm3 (3.60-5.2) 12/11/16 07:00 Hgb 15.2 GM/dL (10.7-15.3) 12/11/16 07:00 Hct 46.4 % (32.4-45.2) H 12/11/16 07:00 MCV 90.1 fl (80-96) 12/11/16 07:00 MCH 29.5 pg (25.7-33.7) 12/11/16 07:00 MCHC 32.8 g/dl (32.0-36.0) 12/11/16 07:00 RDW 14.8 % (11.6-15.6) 12/11/16 07:00 Plt Count 222 K/MM3 (134-434) D 12/11/16 07:00 MPV 8.6 fl (7.5-11.1) D 12/11/16 07:00 Sodium 139 mmol/L (136-145) 12/11/16 07:00 Potassium 4.3 mmol/L (3.5-5.1) 12/11/16 07:00 Chloride 104 mmol/L (98-107) 12/11/16 07:00 Carbon Dioxide 32 mmol/L (21-32) 12/11/16 07:00 Anion Gap 3 (8-16) L 12/11/16 07:00 BUN 8 mg/dL (7-18) D 12/11/16 07:00 Creatinine 0.8 mg/dL (0.55-1.02) 12/11/16 07:00 Creat Clearance w eGFR > 60 (>60) 12/11/16 07:00 Random Glucose 90 mg/dL (74-106) D 12/11/16 07:00 Calcium 9.3 mg/dL (8.5-10.1) 12/11/16 07:00 Total Bilirubin 0.8 mg/dL (0.2-1.0) D 12/11/16 07:00 AST 29 U/L (15-37) D 12/11/16 07:00 ALT 36 U/L (12-78) 12/11/16 07:00 Alkaline Phosphatase 147 U/L (45-117) H D 12/11/16 07:00 Total Protein 7.2 g/dl (6.4-8.2) 12/11/16 07:00 Albumin 3.3 g/dl (3.4-5.0) L D 12/11/16 07:00 Urine Color Yellow 12/11/16 15:20 Urine Appearance Turbid 12/11/16 15:20 Urine pH 7.0 (5.0-8.0) D 12/11/16 15:20 Ur Specific [place] 1.020 (1.005-1.025) 12/11/16 15:20 Urine Protein 1+ (NEGATIVE) H 12/11/16 15:20 Urine Glucose (UA) Negative (NEGATIVE) 12/11/16 15:20 Urine Ketones Negative (NEGATIVE) 12/11/16 15:20 Urine Blood Negative (NEGATIVE) 12/11/16 15:20 Urine Nitrite Negative (NEGATIVE) 12/11/16 15:20 Urine Bilirubin Negative (NEGATIVE) 12/11/16 15:20 Urine Urobilinogen 4.0 e.u/dl mg/dL (0.2-1.0) H 12/11/16 15:20 Urine RBC 5 /hpf (0-3) 12/11/16 15:20 Urine WBC 37 /hpf (3-5) 12/11/16 15:20 Ur Epithelial Cells Moderate /hpf (FEW) 12/11/16 15:20 Calcium Oxalate Crystal Rare /hpf (NONE SEEN) 12/10/16 21:40 Urine Bacteria Moderate /hpf (NONE SEEN) 12/10/16 21:40 Urine Mucus Many 12/11/16 15:20 RPR Titer Nonreactive (NONREACTIVE) 12/11/16 07:00 HIV 1&2 Antibody Screen Negative 12/11/16 07:00 HIV P24 Antigen Negative 12/11/16 07:00 labs noted Assessment: 12/14/16 14:04 Withdrawal sx. Plan: Continue detox
[2016-12-14] MEDS: QUEtiapine FUMARATE 100 MG TABLET (FP) PO SCH (22:54)
[2016-12-14] MEDS: diphenhydrAMINE HCL 50 MG CAPSULE PO PRN (22:54)
[2016-12-14] MEDS: THIAMINE HCL 100 MG TABLET (FP) PO SCH (22:54)
[2016-12-15] MEDS: OFLOXACIN 0.3% OPHTHALMIC SOLUTION 5 ML BOTTLE OD SCH ×2 (01:49→05:00)
[2016-12-15] MEDS ORDERED: METHADONE HCL 5 MG TABLET (FOR DETOX USE ONLY) PO ONE (06:00)
[2016-12-15] MEDS: NITROFURANTOIN MACROCRYSTAL 50 MG CAPSULE (FP) PO SCH (06:20)
[2016-12-15 06:59] VITALS: BP 117/81; PULSE 92; TEMP 97.9
--- NOTE | 2016-12-15 08:27 | DS ---
[facility] Detox Discharge Summary Admission Date: 12/10/16 Discharge Date: 12/15/16 - History Present History: Cannabis Dependence, Cocaine Dependence, Opioid Dependence Additional Comments: FOLLOW UP WITH AFTER CARE PROGRAM ARRANGEMENT Pertinent Past History: NICOTINE DEPENDENCE MAJOR DEPRESSIVE DISORDER PTSD - Physical Exam Results Vital Signs: Vital Signs Temperature 97.9 F 12/15/16 06:00 Pulse Rate 92 H 12/15/16 06:00 Respiratory Rate 18 12/15/16 06:00 Blood Pressure 117/81 12/15/16 06:00 O2 Sat by Pulse Oximetry (%) Pertinent Admission Physical Exam Findings: WITHDRAWAL SYMPTOM - Treatment Hospital Course: Detox Protocol Followed, Detoxed Safely, Responded well, Discharged Condition Good, Rehab Referral Accepted Patient has Accepted a Rehab Referral to: [facility] - Medication Discharge Medications: Ambulatory Orders Aripiprazole [Abilify -] 10 mg PO DAILY #30 tablet 03/19/14 Quetiapine Fumarate [Seroquel] 100 tab PO HS #30 tablet 11/25/15 Escitalopram Oxalate [Lexapro -] 10 mg PO DAILY #30 tablet 04/08/16 Ofloxacin 0.3% Ophth Soln [Ocuflox 0.3% Eye Drops -] 1 drop OP Q4H 12/10/16 Aripiprazole [Abilify -] 10 mg PO DAILY #30 tablet 12/11/16 Escitalopram Oxalate [Lexapro -] 10 mg PO DAILY #30 tablet 12/11/16 Quetiapine Fumarate [Seroquel] 100 mg PO HS #30 tablet 12/11/16 - Diagnosis (1) Opioid dependence with withdrawal Current Visit: Yes Status: Chronic (2) Cannabis dependence Current Visit: Yes Status: Chronic (3) Cocaine dependence, uncomplicated Current Visit: Yes Status: Chronic (4) Hepatitis C carrier Current Visit: No Status: Chronic (5) MDD (major depressive disorder), recurrent episode, severe Current Visit: No Status: Chronic (6) Nicotine dependence Current Visit: No Status: Chronic Qualifiers: Nicotine product type: cigarettes Substance use status: uncomplicated Qualified Code(s): F17.210 - Nicotine dependence, cigarettes, uncomplicated; F17.210 - Nicotine dependence, cigarettes, uncomplicated (7) PTSD (post-traumatic stress disorder) Current Visit: No Status: Chronic (8) Polycystic disease, ovaries Current Visit: No Status: Chronic - AMA Did Patient Leave Against Medical Advice: No
== END 2016-12-15 08:54 | disposition home or self-care (01) | DRG 773 ==
LOC: YASAS 14:57 → Y6N 21:03
PROVIDERS: ADMIT Internal Medicine; ATTEND Internal Medicine
PROC: HZ2ZZZZ Detoxification Services for Substance Abuse Treatment (ICD-10-PCS; principal; 2016-12-10)
DX: F11.23 Opioid dependence with withdrawal (principal); F14.20 Cocaine dependence, uncomplicated; F12.20 Cannabis dependence, uncomplicated; F17.210 Nicotine dependence, cigarettes, uncomplicated; F33.2 Major depressive disorder, recurrent severe without psychotic features; F43.10 Post-traumatic stress disorder, unspecified; G47.00 Insomnia, unspecified; N39.0 Urinary tract infection, site not specified; E28.2 Polycystic ovarian syndrome; B18.2 Chronic viral hepatitis C; K59.01 Slow transit constipation; K64.0 First degree hemorrhoids; I49.9 Cardiac arrhythmia, unspecified; Z88.2 Allergy status to sulfonamides; Z91.010 Allergy to peanuts
CPT/HCPCS: 36415; 80053; 81003; 81015; 85027; 86593; 87389; 93005; 93010

== ENCOUNTER 2018-10-20 11:06 | Inpatient (IN) | payer OTHER | END 2018-10-22 12:33 | disposition left against medical advice (07) | LOC: YASAS 11:06 → Y3N 14:51 ==

== ENCOUNTER 2018-11-04 15:20 | Inpatient (IN) | payer OTHER ==
[2018-11-04 18:24] VITALS: BMI 19.8
--- NOTE | 2018-11-04 20:17 | HP ---
COWS - Scale Resting Pulse: 0= [place] 80 or Below Sweatin= Chills/Flushing Restless Observation: 1= Difficult to Sit Still Pupil Size: 0= Normal to Room Light Bone or Joint Aches: 4=Acute Joint/Muscle Pain Runny Nose/ Eye Tearin= Nasal Congestion GI Upset > 30mins: 2= Nausea/Diarrhea Tremor Observation: 0= None Yawning Observation: 1= 1-2x During Session Anxiety or Irritability: 2=Irritable/Anxious Goose Flesh Skin: 3=Piloerection COWS Score: 15 CIWA Score - Admission Criteria [facility] Guidelines: Admission for Medically Managed Detox: Requires at least one of the followin. CIWA greater than 12 2. Seizures within the past 24 hours 3. Delirium tremens within the past 24 hours 4. Hallucinations within the past 24 hours 5. Acute intervention needed for co occurring medical disorder 6. Acute intervention needed for co occurring psychiatric disorder 7. Severe withdrawal that cannot be handled at a lower level of care (continued vomiting, continued diarrhea, abnormal vital signs) requiring intravenous medication and/or fluids 8. Admission ROS [facility] Chief Complaint: C/O WITHDRAWAL SX'S Allergies/Adverse Reactions: Allergies Allergy/AdvReac Type Severity Reaction Status Date / Time Sulfa (Sulfonamide Allergy Hives Verified 11/04/18 18:16 Antibiotics) walnut Allergy Rash Verified 11/04/18 18:16 History of Present Illness: 38 Y.O. FEMALE WITH HX/O OPIOID DEPENDENCE HERE SEEKING DETOX. SHE PRESENTS WITH C/O WITHDRAWAL SX'S. LAST USE HEROIN EARLIER THIS MORNING. SHE REPORTS DAILY USE.IV. KNOWN TO THIS PROGRAM. SHE WAS LAST HERE 2 WEEKS AGO WHERE SHE SIGNED OUT AFTER 2 DAYS. CLIENT REPORTS SHE WAS FEELING ILL AND WAS NOT GETTING ENOUGH METHADONE. STATES SHE RETURNS NOW TO ATTEMPT TXMENT AND KNOWS SHE WILL COMPLETE THIS TIME AROUND SHE IS USING MUCH LESS HEROIN. SHE REPORTS USING 8 BAGS DAILY VS. 16 BAGS ON LAST ADMISSION. DENIES HX/O DRUG OVERDOSE. HX/O SI/ ATTEMPT. PRESENTLY DENIES ANY SUCH THOUGHTS. LONGEST CLEAN TIME 3 YEARS RELAPSING 8 MONTHS AGO. LIVES WITH BOYFRIEND, UNEMPLOYED, DENIES LEGALS Exam Limitations: No Limitations - Ebola screening Have you traveled outside of the country in the last 21 days: No Have you had contact with anyone from an Ebola affected area: No Have you been sick,other than usual withdrawal symptoms: No Do you have a fever: No - Review of Systems Constitutional: Chills, Loss of Appetite, Malaise, Night Sweats, Changes in sleep, Unintentional Wgt. Loss EENT: reports: Dental Problems (MISSING TEETH) Respiratory: reports: No Symptoms reported Cardiac: reports: No Symptoms Reported GI: reports: Nausea, Poor Appetite, Poor Fluid Intake, Abdominal cramping : reports: No Symptoms Reported Musculoskeletal: reports: Other (GENERAL MALAISE) Integumentary: reports: Other (GOOS BUMPS) Neuro: reports: No Symptoms reported Endocrine: reports: No Symptoms Reported Hematology: reports: No Symptoms Reported Psychiatric: reports: Orientated x3, Agitated (IRRITABLE), Anxious, Depressed ( DENIES SI/HI) Other Systems: Reviewed and Negative Patient History - Patient Medical History Hx Anemia: No Hx Asthma: No Hx Chronic Obstructive Pulmonary Disease (COPD): No Hx Cancer: No Hx Cardiac Disorders: No Hx Congestive Heart Failure: No Hx Hypertension: Yes (RECENT ELEVATED READING BUT HAS NOT BEEN DX) Hx Hypercholesterolemia: No Hx Pacemaker: No HX Cerebrovascular Accident: No Hx Seizures: No Hx Dementia: No Hx Diabetes: No Hx Gastrointestinal Disorders: No Hx Liver Disease: No Hx Genitourinary Disorders: No Hx Sexually Transmitted Disorders: No Hx Renal Disease (ESRD): No Hx Thyroid Disease: No Hx Human Immunodeficiency Virus (HIV): No Hx Hepatitis C: Yes (NO TREATMENT) Hx Depression: Yes Hx Suicide Attempt: Yes (LAST ATTEMPT AGE 15/VIA HANGING SELF) Hx Bipolar Disorder: No Hx Schizophrenia: No - Patient Surgical History Past Surgical History: Yes Hx Neurologic Surgery: No Hx Cataract Extraction: No Hx Cardiac Surgery: No Hx Lung Surgery: No Hx Breast Surgery: No Hx Breast Biopsy: No Hx Abdominal Surgery: No Hx Appendectomy: No Hx Cholecystectomy: No Hx Genitourinary Surgery: No Hx Section: Yes (17 YRS AGO) Hx Orthopedic Surgery: No Anesthesia Reaction: No - PPD History Previous Implant?: Yes Documented Results: Negative w/proof Implanted On Prior R Admission?: Yes Date: 12/12/16 Results: 0MM PPD to be Administered?: No - Reproductive History Patient is a Female of Child Bearing Age (11 -55 yrs old): Yes Last Menstrual Period: 09/15/18 LMP comment: IRREG Patient : No (NEG [facility] [place]) - Smoking Cessation Smoking history: Current every day smoker Have you smoked in the past 12 months: Yes Aproximately how many cigarettes per day: 10 Cigars Per Day: 0 Hx Chewing Tobacco Use: No Initiated information on smoking cessation: Yes 'Breaking Loose' booklet given: 11/04/18 - Substance & Tx. History Hx Alcohol Use: Yes Hx Substance Use: Yes Substance Use Type: Cocaine, Heroin, Marijuana Hx Substance Use Treatment: Yes ([facility]) - Substances abused Heroin Substance route: Injection Frequency: Daily Amount used: 8 ABGS Age of first use: 13 Date of last use: 11/04/18 Cocaine Substance route: Injection Frequency: Daily Amount used: $80 Age of first use: 20 Date of last use: 11/04/18 K2/Spice Substance route: Smoking Frequency: Daily Amount used: $50 Age of first use: 31 Date of last use: 11/04/18 Family Disease History - Family Disease History Family Disease History: Diabetes: Father (HTN), Mother (HTN), Sister (HTN), Other: Father, Mother, Sister Admission Physical Exam S - Vital Signs Vital Signs: Vital Signs - 24 hr 11/04/18 18:15 Temperature 97.2 F L Pulse Rate 63 Respiratory 16 Rate Blood Pressure 175/95 H - Physical General Appearance: Yes: Moderate Distress, Irritable, Anxious, Other (THIN) HEENTM: Yes: EOMI, Normocephalic, Normal Voice, GENIE, Pharynx Normal, Nasal Congestion, Rhinorrhea, Other (POOR DENTITION, MISSING MOST OF TEETH) Respiratory: Yes: Chest Non-Tender, Lungs Clear, Normal Breath Sounds, No Respiratory Distress, No Accessory Muscle Use Neck: Yes: No masses,lesions,Nodules, Supple, Trachea in good position Breast: Yes: Breasts Symetrical Cardiology: Yes: Regular Rhythm, Regular Rate, S1, S2 Abdominal: Yes: Normal Bowel Sounds, Non Tender, Soft, Other (UMBILICAL PERICING ) Genitourinary: Yes: Within Normal Limits (NO C/O) Back: Yes: Normal Inspection Musculoskeletal: Yes: full range of Motion, Gait Steady Extremities: Yes: Normal Range of Motion, Non-Tender, Other (TRACK MO TO ARMS , CONTRACTED POINTER FINGER OF LEFT HAND) Neurological: Yes: Fully Oriented, Alert, Motor Strength 5/5, Depressed Affect Integumentary: Yes: Dry, Track Mo (TO BOTH ARMS), Other (COOL ABRASION TO RLE ) Lymphatic: Yes: Within Normal Limits - Diagnostic (1) Nicotine dependence Current Visit: Yes Status: Chronic Qualifiers: Nicotine product type: cigarettes Substance use status: in withdrawal Qualified Code(s): F17.213 - Nicotine dependence, cigarettes, with withdrawal (2) Opioid dependence with withdrawal Current Visit: Yes Status: Acute (3) Cannabis dependence Current Visit: Yes Status: Chronic (4) Cocaine dependence, uncomplicated Current Visit: Yes Status: Chronic (5) Hepatitis C carrier Current Visit: Yes Status: Chronic (6) Contracture of left index finger Current Visit: Yes Status: Chronic Cleared for Admission [facility] - Detox or Rehab [facility] Level of Care: Medically Managed Detox Regimen/Protocol: Methadone Claeared for Rehab Admission: No Breathalyzer - Breathalyzer Breathalyzer: 0 Urine Drug Screen - Test Device Lot number: [id number] Expiration date: 08/07/20 - Control Is test valid?: Yes - Results Drug screen NEGATIVE: No Urine drug screen results: THC-Marijuana, LEN[place]-Cocaine, FEN-Fentanyl, MOP-Opiates , OXY-Oxycodone Inpatient Rehab Admission - Rehab Decision to Admit Inpatient rehab admission?: No
[2018-11-04] MEDS ORDERED: MAG HYDROX/AL HYDROX/SIMETH 30 ML UNIT-DOSE CUP PO PRN (20:22)
[2018-11-04] MEDS ORDERED: IBUPROFEN 400 MG TABLET (FP) PO PRN (20:22)
[2018-11-04] MEDS ORDERED: DICYCLOMINE HCL 10 MG CAPSULE PO PRN (20:22)
[2018-11-04] MEDS ORDERED: P-EPHED 60MG/TRIPROLIDI 2.5MG TABLET PO PRN (20:22)
[2018-11-04] MEDS ORDERED: MELATONIN 5 MG TABLETS PO PRN (20:22)
[2018-11-04] MEDS ORDERED: METHOCARBAMOL 500 MG TABLET PO PRN (20:22)
[2018-11-04] MEDS ORDERED: ONDANSETRON *ODT* 4 MG TABLET SL PRN (20:22)
[2018-11-04] MEDS ORDERED: MAGNESIUM CITRATE 300 ML BOTTLE PO PRN (20:22)
[2018-11-04] MEDS ORDERED: MAGNESIUM HYDROX 2400MG/30ML ORAL SUSPENSION 30 ML CUP PO PRN (20:22)
[2018-11-04] MEDS ORDERED: ACETAMINOPHEN 325 MG TABLET (FP) PO PRN ×2 (20:22)
[2018-11-04] MEDS ORDERED: hydrOXYzine PAMOATE 25 MG CAPSULE (FP) PO PRN (20:22)
[2018-11-04] MEDS ORDERED: BISMUTH SUBSALICYLATE 524 MG/30 ML UD PO PRN (20:22)
[2018-11-04] MEDS ORDERED: MENTHOL/PHENOL 1 EACH UD MM PRN (20:22)
[2018-11-04] MEDS ORDERED: NICOTINE POLACRILEX 2 MG GUM BUC PRN (20:22)
[2018-11-04] MEDS ORDERED: METHADONE HCL 10 MG TABLET (FOR DETOX USE ONLY) PO ONE (20:22)
[2018-11-04] MEDS ORDERED: guaiFENesin 200 MG/10 ML 10 ML UNIT-DOSE CUPS PO PRN (20:22)
[2018-11-04] MEDS: THIAMINE HCL 100 MG TABLET (FP) PO SCH (22:00)
[2018-11-05] MEDS ORDERED: METHADONE HCL 5 MG TABLET (FOR DETOX USE ONLY) ONE (08:40)
[2018-11-05] MEDS ORDERED: METHADONE HCL 10 MG TABLET (FOR DETOX USE ONLY) ONE (08:40)
[2018-11-05] MEDS ORDERED: METHADONE (DETOX) 20 MG, METHADONE (DETOX) 5 MG PO ONE (10:00)
[2018-11-05] MEDS: LISINOPRIL 10 MG TABLET (FP) PO SCH (10:30)
[2018-11-05] MEDS: PRENATAL VITAMINS W/ FOLIC ACID TABLET (FP) PO SCH (10:30)
[2018-11-05] MEDS: NICOTINE 14 MG/24 HOURS TOPICAL PATCH TD SCH (10:30)
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
--- NOTE | 2018-11-05 11:01 | PN ---
[facility] COWS - Scale Resting Pulse: 0= [place] 80 or Below Sweatin= Chills/Flushing Restless Observation: 0= Sits Still Pupil Size: 1= Pupils >than Normal Bone or Joint Aches: 2= Severe Diffuse Aches Runny Nose/ Eye Tearin= Nasal Congestion GI Upset > 30mins: 1= Stomach Cramp Tremor Observation of Outstretched Hands: 2= Slight Tremor Visible Yawning Observation: 1= 1-2x During Session Anxiety or Irritability: 2=Irritable/Anxious Goose Flesh Skin: 3=Piloerection COWS Score: 14 S Progress Note (SOAP) Subjective: 38 years old female multiple patient [facility] admission for detox and rehab was admitted on 11/04/18 for opiate withdrawal sx management doing well with methadone detox regimen resting on bed comfortably long history of hypertension treated with lisinopril bp gradually reduced denies headache no chest pain no shortness of breath Objective: 11/05/18 11:06 Vital Signs Temperature 97.5 F L 11/05/18 09:10 Pulse Rate 59 L 11/05/18 09:10 Respiratory Rate 18 11/05/18 09:10 Blood Pressure 128/85 11/05/18 09:10 O2 Sat by Pulse Oximetry (%) see lab on 10/22/18 positive tb serum chest x ray ordered Assessment: 11/05/18 11:11 opiate withdrawal sx alert oriented x 3 resting on bed comfortably informed positive ppd serum chest x ray required patient agrees to have chest x ray Plan: continue methadone detox regimen
[2018-11-05] MEDS: cloNIDine HCL 0.1 MG TABLET PO PRN ×2 (12:12→22:19)
[2018-11-05] MEDS ORDERED: QUEtiapine FUMARATE 50 MG TABLET PO SCH (22:00)
[2018-11-05] MEDS: THIAMINE HCL 100 MG TABLET (FP) PO SCH (22:19)
[2018-11-06 09:51] VITALS: BP 147/92; PULSE 58; TEMP 97.5
[2018-11-06] MEDS ORDERED: METHADONE HCL 10 MG TABLET (FOR DETOX USE ONLY) PO ONE (10:00)
[2018-11-06] MEDS: NICOTINE 14 MG/24 HOURS TOPICAL PATCH TD SCH (10:26)
[2018-11-06] MEDS: PRENATAL VITAMINS W/ FOLIC ACID TABLET (FP) PO SCH (10:26)
[2018-11-06] MEDS: LISINOPRIL 10 MG TABLET (FP) PO SCH (10:27)
--- NOTE | 2018-11-06 11:23 | PN ---
BHS COWS - Scale Resting Pulse: 0= [place] 80 or Below Sweatin= Chills/Flushing Restless Observation: 1= Difficult to Sit Still Pupil Size: 1= Pupils >than Normal Bone or Joint Aches: 2= Severe Diffuse Aches Runny Nose/ Eye Tearin= Nasal Congestion GI Upset > 30mins: 1= Stomach Cramp Tremor Observation of Outstretched Hands: 1= Tremor [place], Not Seen Yawning Observation: 1= 1-2x During Session Anxiety or Irritability: 2=Irritable/Anxious Goose Flesh Skin: 0=Smooth Skin COWS Score: 11 [facility] Progress Note (SOAP) Subjective: alert,irritable,anxious,interrupted sleep,tremor,pain in the body and back Objective: 11/06/18 11:21 Vital Signs Temperature 97.5 F L 11/06/18 09:49 Pulse Rate 58 L 11/06/18 09:49 Respiratory Rate 16 11/06/18 09:49 Blood Pressure 147/92 11/06/18 09:49 O2 Sat by Pulse Oximetry (%) Assessment: 11/06/18 11:22 withdrawal symptom Plan: continue detox methadone regimen
--- NOTE | 2018-11-06 11:27 | DS ---
[facility] Detox Discharge Summary Admission Date: 11/04/18 Discharge Date: 11/06/18 - History Present History: Cocaine Dependence, Opioid Dependence, K 2 Additional Comments: patient signed release AMA,advise to call 911 if not feeling well Pertinent Past History: nicotine dependence hepatitis c - Physical Exam Results Vital Signs: Vital Signs Temperature 97.5 F L 11/06/18 09:49 Pulse Rate 58 L 11/06/18 09:49 Respiratory Rate 16 11/06/18 09:49 Blood Pressure 147/92 11/06/18 09:49 O2 Sat by Pulse Oximetry (%) Pertinent Admission Physical Exam Findings: withdrawal sign and symptom Vital Signs Temperature 97.5 F L 11/06/18 09:49 Pulse Rate 58 L 11/06/18 09:49 Respiratory Rate 16 11/06/18 09:49 Blood Pressure 147/92 11/06/18 09:49 O2 Sat by Pulse Oximetry (%) - Medication Discharge Medications: Ambulatory Orders Lisinopril 10 mg PO DAILY 10/22/18 - Diagnosis (1) Opioid dependence with withdrawal Current Visit: Yes Status: Acute (2) Cocaine dependence, uncomplicated Current Visit: Yes Status: Chronic (3) Hepatitis C carrier Current Visit: Yes Status: Chronic - AMA Did Patient Leave Against Medical Advice: Yes
[2018-11-07] MEDS ORDERED: METHADONE (DETOX) 10 MG, METHADONE (DETOX) 5 MG PO ONE (10:00)
[2018-11-08] MEDS ORDERED: METHADONE HCL 10 MG TABLET (FOR DETOX USE ONLY) PO ONE (10:00)
[2018-11-09] MEDS ORDERED: METHADONE HCL 5 MG TABLET (FOR DETOX USE ONLY) PO ONE (06:00)
== END 2018-11-06 11:37 | disposition left against medical advice (07) | DRG 770 ==
LOC: YASAS 15:20 → Y3N 21:24
PROVIDERS: ADMIT Surgery; ATTEND Surgery
PROC: HZ2ZZZZ Detoxification Services for Substance Abuse Treatment (ICD-10-PCS; principal; 2018-11-04)
DX: F11.23 Opioid dependence with withdrawal (principal); F14.20 Cocaine dependence, uncomplicated; F12.20 Cannabis dependence, uncomplicated; F19.20 Other psychoactive substance dependence, uncomplicated; F17.213 Nicotine dependence, cigarettes, with withdrawal; F33.9 Major depressive disorder, recurrent, unspecified; F19.282 Other psychoactive substance dependence with psychoactive substance-induced sleep disorder; F19.24 Other psychoactive substance dependence with psychoactive substance-induced mood disorder; F43.10 Post-traumatic stress disorder, unspecified; I10 Essential (primary) hypertension; B18.2 Chronic viral hepatitis C; R76.11 Nonspecific reaction to tuberculin skin test without active tuberculosis; M20.092 Other deformity of left finger(s)
CPT/HCPCS: 81025; J0735

== ENCOUNTER 2019-01-27 14:42 | Inpatient (IN) | payer OTHER ==
[2019-01-27 15:54] VITALS: BMI 23.6
--- NOTE | 2019-01-27 19:14 | HP ---
COWS - Scale Resting Pulse: 0= [place] 80 or Below Sweatin=Flushed/Facial Moisture Restless Observation: 3= Extraneous Movement Pupil Size: 1= Pupils >than Normal Bone or Joint Aches: 4=Acute Joint/Muscle Pain Runny Nose/ Eye Tearin= Nasal Congestion GI Upset > 30mins: 1= Stomach Cramp Tremor Observation: 2= Slight Tremor Visible Yawning Observation: 0= None Anxiety or Irritability: 2=Irritable/Anxious Goose Flesh Skin: 3=Piloerection COWS Score: 19 CIWA Score - Admission Criteria OASAS Guidelines: Admission for Medically Managed Detox: Requires at least one of the followin. CIWA greater than 12 2. Seizures within the past 24 hours 3. Delirium tremens within the past 24 hours 4. Hallucinations within the past 24 hours 5. Acute intervention needed for co occurring medical disorder 6. Acute intervention needed for co occurring psychiatric disorder 7. Severe withdrawal that cannot be handled at a lower level of care (continued vomiting, continued diarrhea, abnormal vital signs) requiring intravenous medication and/or fluids 8. Admitting History and Physical - Past Medical History ...LMP: 09/15/18 - Smoking History Smoking history: Current every day smoker Have you smoked in the past 12 months: Yes Aproximately how many cigarettes per day: 10 - Alcohol/Substance Use Hx Alcohol Use: Yes Admission [facility] Chief Complaint: c/o withdrawal sx's. seeking heroin detox Allergies/Adverse Reactions: Allergies Allergy/AdvReac Type Severity Reaction Status Date / Time Sulfa (Sulfonamide Allergy Hives Verified 01/27/19 15:45 Antibiotics) walnut Allergy Rash Verified 01/27/19 15:45 History of Present Illness: 38 y.o. female here for detox. client is self referred. known to program . last here . client signed out ama then due to what she reports she was using many substances before and was craving. now only using heroin and cocaine. she reports daily use. last use this morning 1 bag/ iv. here addiction started age 13. reports most recent clean time 2 months relapsing in 08/2018. denies hx/o drug overdose, black outs,avh. lives with a FRIEND, unemployed- family, denies legals Exam Limitations: No Limitations - Ebola screening Have you traveled outside of the country in the last 21 days: No Have you had contact with anyone from an Ebola affected area: No Have you been sick,other than usual withdrawal symptoms: No Do you have a fever: No - Review of Systems Constitutional: Chills, Loss of Appetite, Malaise, Night Sweats, Changes in sleep (cant stay asleep) EENT: reports: No Symptoms Reported Respiratory: reports: No Symptoms reported Cardiac: reports: No Symptoms Reported GI: reports: Poor Appetite, Poor Fluid Intake, Abdominal cramping : reports: No Symptoms Reported Musculoskeletal: reports: Back Pain (r/t withdrawal) Integumentary: reports: No Symptoms Reported Neuro: reports: No Symptoms reported Endocrine: reports: No Symptoms Reported Hematology: reports: No Symptoms Reported Psychiatric: reports: Judgement Intact, Orientated x3, Anxious, Depressed ( denies si) Other Systems: Reviewed and Negative Patient History - Patient Medical History Hx Anemia: No Hx Asthma: No Hx Chronic Obstructive Pulmonary Disease (COPD): No Hx Cancer: No Hx Cardiac Disorders: No Hx Congestive Heart Failure: No Hx Hypertension: No Hx Hypercholesterolemia: No Hx Pacemaker: No HX Cerebrovascular Accident: No Hx Seizures: No Hx Dementia: No Hx Diabetes: No Hx Gastrointestinal Disorders: No Hx Liver Disease: No Hx Genitourinary Disorders: No Hx Sexually Transmitted Disorders: No Hx Renal Disease (ESRD): No Hx Thyroid Disease: No Hx Human Immunodeficiency Virus (HIV): No Hx Hepatitis C: Yes (NO TREATMENT) Hx Depression: Yes (non complaint with ambilify/lexapro/seroquel) Hx Suicide Attempt: No Hx Bipolar Disorder: No Hx Schizophrenia: No Other Medical History: denies - Patient Surgical History Past Surgical History: Yes Hx Neurologic Surgery: No Hx Cataract Extraction: No Hx Cardiac Surgery: No Hx Lung Surgery: No Hx Breast Surgery: No Hx Breast Biopsy: No Hx Abdominal Surgery: No Hx Appendectomy: No Hx Cholecystectomy: No Hx Genitourinary Surgery: No Hx Section: Yes (17 YRS AGO) Hx Orthopedic Surgery: No Anesthesia Reaction: No - PPD History Previous Implant?: Yes Documented Results: Negative w/proof Implanted On Prior R Admission?: Yes Date: 10/26/18 Results: tb gold + PPD to be Administered?: No - Reproductive History Patient is a Female of Child Bearing Age (11 -55 yrs old): Yes Last Menstrual Period: 12/08/18 LMP comment: irreg Patient : No (neg [facility]) - Smoking Cessation Smoking history: Current every day smoker Have you smoked in the past 12 months: Yes Aproximately how many cigarettes per day: 20 Cigars Per Day: 0 Hx Chewing Tobacco Use: No Initiated information on smoking cessation: Yes 'Breaking Loose' booklet given: 01/27/19 - Substance & Tx. History Hx Alcohol Use: No Hx Substance Use: Yes Substance Use Type: Cocaine, Heroin Hx Substance Use Treatment: Yes ([facility]) - Substances abused Alcohol Substance route: Oral Frequency: 1-2 times per week Amount used: 2 12oz margaritas Age of first use: 17 Date of last use: 10/30/18 Heroin Substance route: Injection Frequency: Daily Amount used: 8-10 bags Age of first use: 13 Date of last use: 01/27/19 Cocaine Substance route: Injection Frequency: Daily Amount used: $50 Age of first use: 20 Date of last use: 01/27/19 Benzodiazepine (Klonopin) Substance route: Oral Frequency: 1-2 times per week Amount used: 3mg Age of first use: 27 Date of last use: 11/02/18 K2/Spice Substance route: Smoking Frequency: Daily Amount used: $50 Age of first use: 31 Date of last use: 01/27/19 Admission Physical Exam S - Vital Signs Vital Signs: Vital Signs - 24 hr 01/27/19 15:46 Temperature 98.2 F Pulse Rate 79 Respiratory 20 Rate Blood Pressure 133/89 - Physical General Appearance: Yes: Moderate Distress, Tremorous, Irritable, Anxious HEENTM: Yes: EOMI, Normocephalic, Normal Voice, GENIE, Pharynx Normal, Other ( poor dentition w/ missing teeth) Respiratory: Yes: Chest Non-Tender, Lungs Clear, No Respiratory Distress, No Accessory Muscle Use Neck: Yes: No masses,lesions,Nodules, Supple Breast: Yes: Breasts Symetrical Cardiology: Yes: Regular Rhythm, Regular Rate, S1, S2 Abdominal: Yes: Non Tender, Soft, Increased Bowel Sounds Genitourinary: Yes: Within Normal Limits (no c/o offered) Back: Yes: Normal Inspection Musculoskeletal: Yes: full range of Motion, Gait Steady Extremities: Yes: Normal Capillary Refill, Non-Tender, Tremors Neurological: Yes: Fully Oriented, Alert, Depressed Affect Integumentary: Yes: Dry, Cold, Other (pilorection track rachel to arms) Lymphatic: Yes: Within Normal Limits - Diagnostic (1) Non compliance with medical treatment Current Visit: Yes Status: Suspected (2) Homeless Current Visit: Yes Status: Suspected (3) IVDU (intravenous drug user) Current Visit: Yes Status: Acute (4) History of positive PPD Current Visit: Yes Status: Chronic (5) Opioid dependence with withdrawal Current Visit: Yes Status: Acute (6) Substance induced mood disorder Current Visit: Yes Status: Acute (7) Cocaine dependence, uncomplicated Current Visit: Yes Status: Acute (8) Hepatitis C carrier Current Visit: Yes Status: Chronic (9) Nicotine dependence Current Visit: Yes Status: Chronic Qualifiers: Nicotine product type: cigarettes Substance use status: in withdrawal Qualified Code(s): F17.213 - Nicotine dependence, cigarettes, with withdrawal (10) Track rachel due to intravenous drug abuse Current Visit: Yes Status: Acute Cleared for Admission [facility] - Detox or Rehab [facility] Level of Care: Medically Managed Detox Regimen/Protocol: Methadone Claeared for Rehab Admission: No Breathalyzer - Breathalyzer Breathalyzer: 0 Urine Drug Screen - Test Device Lot number: [id number] Expiration date: 10/07/20 - Control Is test valid?: Yes - Results Drug screen NEGATIVE: No Urine drug screen results: LENORE-Cocaine, FEN-Fentanyl, MOP-Opiates Inpatient Rehab Admission - Rehab Decision to Admit Inpatient rehab admission?: No
[2019-01-27] MEDS ORDERED: P-EPHED 60MG/TRIPROLIDI 2.5MG TABLET PO PRN (19:23)
[2019-01-27] MEDS ORDERED: guaiFENesin 200 MG/10 ML 10 ML UNIT-DOSE CUPS PO PRN (19:23)
[2019-01-27] MEDS ORDERED: MAGNESIUM HYDROX 2400MG/30ML ORAL SUSPENSION 30 ML CUP PO PRN (19:23)
[2019-01-27] MEDS ORDERED: MELATONIN 5 MG TABLETS PO PRN (19:23)
[2019-01-27] MEDS ORDERED: MAGNESIUM CITRATE 300 ML BOTTLE PO PRN (19:23)
[2019-01-27] MEDS ORDERED: MENTHOL/PHENOL 1 EACH UD MM PRN (19:23)
[2019-01-27] MEDS ORDERED: METHOCARBAMOL 500 MG TABLET PO PRN (19:23)
[2019-01-27] MEDS ORDERED: METHADONE HCL 10 MG TABLET (FOR DETOX USE ONLY) PO ONE (19:23)
[2019-01-27] MEDS ORDERED: ACETAMINOPHEN 325 MG TABLET (FP) PO PRN ×2 (19:23)
[2019-01-27] MEDS ORDERED: MAG HYDROX/AL HYDROX/SIMETH 30 ML UNIT-DOSE CUP PO PRN (19:23)
[2019-01-27] MEDS ORDERED: NICOTINE POLACRILEX 2 MG GUM BUC PRN (19:23)
[2019-01-27] MEDS ORDERED: BISMUTH SUBSALICYLATE 524 MG/30 ML UD PO PRN (19:23)
[2019-01-27] MEDS ORDERED: IBUPROFEN 400 MG TABLET (FP) PO PRN (19:23)
[2019-01-27] MEDS ORDERED: ONDANSETRON *ODT* 4 MG TABLET SL PRN (19:23)
[2019-01-27] MEDS: THIAMINE HCL 100 MG TABLET (FP) PO SCH (22:20)
[2019-01-28] MEDS ORDERED: METHADONE HCL 10 MG TABLET (FOR DETOX USE ONLY) ONE (09:20)
[2019-01-28] MEDS ORDERED: METHADONE HCL 5 MG TABLET (FOR DETOX USE ONLY) ONE (09:21)
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
[2019-01-28 09:45] LABS: HEMATOCRIT 42.5 % (32.4-45.2); HEMOGLOBIN 14.2 GM/dL (10.7-15.3); MCH 30.6 pg (25.7-33.7); MCHC 33.4 g/dl (32.0-36.0); MEAN CELL VOLUME 91.6 fl (80-96); MEAN PLT VOLUME 8.9 fl (7.5-11.1); PLATELET COUNT 188 K/MM3 (134-434); RBC 4.64 M/mm3 (3.60-5.2); RDW 14.5 % (11.6-15.6); WHITE BLOOD COUNT 5.4 K/mm3 (4.0-10.0)
[2019-01-28] MEDS ORDERED: METHADONE (DETOX) 20 MG, METHADONE (DETOX) 5 MG PO ONE (10:00)
[2019-01-28] MEDS ORDERED: ARIPiprazole 5 MG TABLET (FP) PO SCH (10:00)
[2019-01-28 10:04] LABS: ALBUMIN 3.5 g/dl (3.4-5.0); BILIRUBIN,TOTAL 0.8 mg/dL (0.2-1); BLOOD UREA NITROGEN 12.6 mg/dL (7-18); CALCIUM 8.9 mg/dL (8.5-10.1); CREATININE 0.9 mg/dL (0.55-1.3); POTASSIUM 4.2 mmol/L (3.5-5.1); TOT PROT 6.8 g/dl (6.4-8.2)
[2019-01-28] MEDS: ARIPiprazole 10 MG TABLET PO SCH (10:09)
[2019-01-28] MEDS: PRENATAL VITAMINS W/ FOLIC ACID TABLET (FP) PO SCH (10:14)
[2019-01-28] MEDS: NICOTINE 21 MG/24 HOURS TOPICAL PATCH TD SCH (10:14)
[2019-01-28] MEDS: ESCITALOPRAM OXALATE 10 MG TABLET (FP) PO SCH (10:16)
[2019-01-28] MEDS: hydrOXYzine PAMOATE 25 MG CAPSULE (FP) PO PRN ×2 (10:20→17:16)
--- NOTE | 2019-01-28 12:53 | PN ---
BHS COWS - Scale Resting Pulse: 0= [place] 80 or Below Sweatin= Chills/Flushing Restless Observation: 0= Sits Still Pupil Size: 1= Pupils >than Normal Bone or Joint Aches: 2= Severe Diffuse Aches Runny Nose/ Eye Tearin= Nasal Congestion GI Upset > 30mins: 2= Nausea/Diarrhea Tremor Observation of Outstretched Hands: 2= Slight Tremor Visible Yawning Observation: 1= 1-2x During Session Anxiety or Irritability: 2=Irritable/Anxious Goose Flesh Skin: 3=Piloerection COWS Score: 15 [facility] Progress Note (SOAP) Subjective: 38 yeas old female admitted on 01/27/19 for opiate withdrawal sx management treaTED WITH METHADONE DETOX REGIMEN TOLERATE WELL RESTING ON BED FEELING TIRED PREFERS TO SLEEP LONGER TODAY Objective: 01/28/19 12:51 Vital Signs Temperature 97 F L 01/28/19 09:06 Pulse Rate 70 01/28/19 09:06 Respiratory Rate 18 01/28/19 09:06 Blood Pressure 136/78 01/28/19 09:06 O2 Sat by Pulse Oximetry (%) Laboratory Last Values WBC 5.4 K/mm3 (4.0-10.0) 01/28/19 08:00 RBC 4.64 M/mm3 (3.60-5.2) 01/28/19 08:00 Hgb 14.2 GM/dL (10.7-15.3) 01/28/19 08:00 Hct 42.5 % (32.4-45.2) 01/28/19 08:00 MCV 91.6 fl (80-96) 01/28/19 08:00 MCH 30.6 pg (25.7-33.7) 01/28/19 08:00 MCHC 33.4 g/dl (32.0-36.0) 01/28/19 08:00 RDW 14.5 % (11.6-15.6) 01/28/19 08:00 Plt Count 188 K/MM3 (134-434) 01/28/19 08:00 MPV 8.9 fl (7.5-11.1) 01/28/19 08:00 Sodium 141 mmol/L (136-145) 01/28/19 08:00 Potassium 4.2 mmol/L (3.5-5.1) 01/28/19 08:00 Chloride 109 mmol/L (98-107) H 01/28/19 08:00 Carbon Dioxide 26 mmol/L (21-32) 01/28/19 08:00 Anion Gap 6 MMOL/L (8-16) L 01/28/19 08:00 BUN 12.6 mg/dL (7-18) 01/28/19 08:00 Creatinine 0.9 mg/dL (0.55-1.3) 01/28/19 08:00 Est GFR (CKD-EPI)AfAm 93.35 01/28/19 08:00 Est GFR (CKD-EPI)NonAf 80.54 01/28/19 08:00 Random Glucose 103 mg/dL (74-106) 01/28/19 08:00 Calcium 8.9 mg/dL (8.5-10.1) 01/28/19 08:00 Total Bilirubin 0.8 mg/dL (0.2-1) 01/28/19 08:00 AST 20 U/L (15-37) 01/28/19 08:00 ALT 39 U/L (13-61) 01/28/19 08:00 Alkaline Phosphatase 115 U/L (45-117) 01/28/19 08:00 Total Protein 6.8 g/dl (6.4-8.2) 01/28/19 08:00 Albumin 3.5 g/dl (3.4-5.0) 01/28/19 08:00 POC Urine HCG, Qual Negative 01/27/19 20:05 RPR Titer Nonreactive (NONREACTIVE) 01/28/19 08:00 LAB NOTED Assessment: 01/28/19 12:51 OPIATE WITHDRAWAL SX Plan: CONTINUE METHADONE DETOX REGIMEN
[2019-01-28] MEDS: SUVOREXANT 10 MG TABLET PO PRN (22:02)
[2019-01-28] MEDS: cloNIDine HCL 0.1 MG TABLET PO PRN (22:03)
[2019-01-28] MEDS: THIAMINE HCL 100 MG TABLET (FP) PO SCH (22:03)
[2019-01-28 22:34] LABS: URINE APPEARANCE CLOUDY; URINE BILIRUBIN NEGATIVE (NEGATIVE); URINE COLOR YELLOW; URINE GLUCOSE (UA) NEGATIVE (NEGATIVE); URINE KETONE NEGATIVE (NEGATIVE); URINE LEUK ESTERASE NEGATIVE (NEGATIVE); URINE NITRITE NEGATIVE (NEGATIVE); URINE PROTEIN NEGATIVE (NEGATIVE); URINE UROBILINOGEN 0.2 mg/dL (0.2-1.0)
[2019-01-29] MEDS: PRENATAL VITAMINS W/ FOLIC ACID TABLET (FP) PO SCH (09:37)
[2019-01-29] MEDS: ESCITALOPRAM OXALATE 10 MG TABLET (FP) PO SCH (09:37)
[2019-01-29] MEDS: NICOTINE 21 MG/24 HOURS TOPICAL PATCH TD SCH (09:37)
[2019-01-29] MEDS: ARIPiprazole 10 MG TABLET PO SCH (09:37)
[2019-01-29] MEDS: hydrOXYzine PAMOATE 25 MG CAPSULE (FP) PO PRN ×2 (09:38→21:20)
[2019-01-29] MEDS ORDERED: METHADONE HCL 10 MG TABLET (FOR DETOX USE ONLY) PO ONE (10:00)
--- NOTE | 2019-01-29 12:18 | EKG ---
Test Reason : Blood Pressure : / mmHG Vent. Rate : 072 BPM Atrial Rate : 072 BPM P-R Int : 134 ms QRS Dur : 088 ms QT Int : 418 ms P-R-T Axes : 069 072 032 degrees QTc Int : 457 ms NORMAL SINUS RHYTHM NORMAL ECG WHEN COMPARED WITH ECG OF 10-DEC-2016 20:40, NONSPECIFIC T WAVE ABNORMALITY NO LONGER EVIDENT IN ANTERIOR LEADS Confirmed by TANISHA MALDONADO MD ([id number]) on 01/29/2019 12:18:22 PM Referred By: Confirmed By:TANISHA MALDONADO MD
--- NOTE | 2019-01-29 14:47 | PN ---
BHS COWS - Scale Resting Pulse: 1= [place] 81-100 Sweatin= No chills or Flushing Restless Observation: 1= Difficult to Sit Still Pupil Size: 1= Pupils >than Normal Bone or Joint Aches: 1= Mild Discomfort Runny Nose/ Eye Tearin= Nasal Congestion GI Upset > 30mins: 2= Nausea/Diarrhea Tremor Observation of Outstretched Hands: 1= Tremor [place], Not Seen Yawning Observation: 1= 1-2x During Session Anxiety or Irritability: 2=Irritable/Anxious Goose Flesh Skin: 0=Smooth Skin COWS Score: 11 [facility] Progress Note (SOAP) Subjective: ALERT,IRRITABLE,ANXIOUS,INTERRUPTED SLEEP Objective: 01/29/19 14:47 Vital Signs Temperature 99.0 F 01/29/19 13:42 Pulse Rate 72 01/29/19 13:42 Respiratory Rate 18 01/29/19 13:42 Blood Pressure 138/92 01/29/19 13:42 O2 Sat by Pulse Oximetry (%) Assessment: 01/29/19 14:47 WITHDRAWAL SYMPTOM Plan: CONTINUE DETOX,METHADONE REGIMEN
[2019-01-29] MEDS: SUVOREXANT 10 MG TABLET PO PRN (21:19)
[2019-01-29] MEDS: cloNIDine HCL 0.1 MG TABLET PO PRN (21:20)
[2019-01-29] MEDS: THIAMINE HCL 100 MG TABLET (FP) PO SCH (21:23)
[2019-01-30] MEDS ORDERED: METHADONE HCL 10 MG TABLET (FOR DETOX USE ONLY) ONE (09:58)
[2019-01-30] MEDS ORDERED: METHADONE (DETOX) 10 MG, METHADONE (DETOX) 5 MG PO ONE (10:00)
[2019-01-30] MEDS ORDERED: METHADONE HCL 5 MG TABLET (FOR DETOX USE ONLY) ONE (10:00)
[2019-01-30] MEDS: ARIPiprazole 10 MG TABLET PO SCH (10:23)
[2019-01-30] MEDS: PRENATAL VITAMINS W/ FOLIC ACID TABLET (FP) PO SCH (10:23)
[2019-01-30] MEDS: ESCITALOPRAM OXALATE 10 MG TABLET (FP) PO SCH (10:23)
[2019-01-30] MEDS: NICOTINE 21 MG/24 HOURS TOPICAL PATCH TD SCH (10:25)
--- NOTE | 2019-01-30 13:12 | PN ---
S COWS - Scale Resting Pulse: 0= [place] 80 or Below Sweatin= Beads of Sweat on Face Restless Observation: 1= Difficult to Sit Still Pupil Size: 0= Normal to Room Light Bone or Joint Aches: 2= Severe Diffuse Aches Runny Nose/ Eye Tearin= None GI Upset > 30mins: 0= None Tremor Observation of Outstretched Hands: 0= None Yawning Observation: 1= 1-2x During Session Anxiety or Irritability: 2=Irritable/Anxious Goose Flesh Skin: 0=Smooth Skin COWS Score: 9 S Progress Note (SOAP) Subjective: c/o sweats, anxiety, and muscle aches. Objective: 01/30/19 13:13 Vital Signs 01/30/19 01/30/19 06:46 09:27 Temperature 97.3 F L 97.4 F L Pulse Rate 67 80 Respiratory 18 18 Rate Blood Pressure 126/76 133/84 Laboratory Last Values WBC 5.4 K/mm3 (4.0-10.0) 01/28/19 08:00 RBC 4.64 M/mm3 (3.60-5.2) 01/28/19 08:00 Hgb 14.2 GM/dL (10.7-15.3) 01/28/19 08:00 Hct 42.5 % (32.4-45.2) 01/28/19 08:00 MCV 91.6 fl (80-96) 01/28/19 08:00 MCH 30.6 pg (25.7-33.7) 01/28/19 08:00 MCHC 33.4 g/dl (32.0-36.0) 01/28/19 08:00 RDW 14.5 % (11.6-15.6) 01/28/19 08:00 Plt Count 188 K/MM3 (134-434) 01/28/19 08:00 MPV 8.9 fl (7.5-11.1) 01/28/19 08:00 Sodium 141 mmol/L (136-145) 01/28/19 08:00 Potassium 4.2 mmol/L (3.5-5.1) 01/28/19 08:00 Chloride 109 mmol/L (98-107) H 01/28/19 08:00 Carbon Dioxide 26 mmol/L (21-32) 01/28/19 08:00 Anion Gap 6 MMOL/L (8-16) L 01/28/19 08:00 BUN 12.6 mg/dL (7-18) 01/28/19 08:00 Creatinine 0.9 mg/dL (0.55-1.3) 01/28/19 08:00 Est GFR (CKD-EPI)AfAm 93.35 01/28/19 08:00 Est GFR (CKD-EPI)NonAf 80.54 01/28/19 08:00 Random Glucose 103 mg/dL (74-106) 01/28/19 08:00 Calcium 8.9 mg/dL (8.5-10.1) 01/28/19 08:00 Total Bilirubin 0.8 mg/dL (0.2-1) 01/28/19 08:00 AST 20 U/L (15-37) 01/28/19 08:00 ALT 39 U/L (13-61) 01/28/19 08:00 Alkaline Phosphatase 115 U/L (45-117) 01/28/19 08:00 Total Protein 6.8 g/dl (6.4-8.2) 01/28/19 08:00 Albumin 3.5 g/dl (3.4-5.0) 01/28/19 08:00 Urine Color Yellow 01/28/19 18:33 Urine Appearance Cloudy 01/28/19 18:33 Urine pH 5.0 (5.0-8.0) D 01/28/19 18:33 Ur Specific [place] 1.023 (1.010-1.035) 01/28/19 18:33 Urine Protein Negative (NEGATIVE) 01/28/19 18:33 Urine Glucose (UA) Negative (NEGATIVE) 01/28/19 18:33 Urine Ketones Negative (NEGATIVE) 01/28/19 18:33 Urine Blood Negative (NEGATIVE) 01/28/19 18:33 Urine Nitrite Negative (NEGATIVE) 01/28/19 18:33 Urine Bilirubin Negative (NEGATIVE) 01/28/19 18:33 Urine Urobilinogen 0.2 mg/dL (0.2-1.0) 01/28/19 18:33 Ur Leukocyte Esterase Negative (NEGATIVE) 01/28/19 18:33 POC Urine HCG, Qual Negative 01/27/19 20:05 RPR Titer Nonreactive (NONREACTIVE) 01/28/19 08:00 Labs noted. Assessment: 01/30/19 13:13 AOX3, in no acute respiratory distress. Full ROM, ambulating in the unit. withdrawal symptoms. Plan: continue detox.
[2019-01-30] MEDS: hydrOXYzine PAMOATE 25 MG CAPSULE (FP) PO PRN ×2 (13:29→22:01)
[2019-01-30] MEDS: THIAMINE HCL 100 MG TABLET (FP) PO SCH (21:58)
[2019-01-30] MEDS: SUVOREXANT 10 MG TABLET PO PRN (22:00)
[2019-01-31] MEDS ORDERED: METHADONE HCL 10 MG TABLET (FOR DETOX USE ONLY) PO ONE (10:00)
[2019-01-31] MEDS: ESCITALOPRAM OXALATE 10 MG TABLET (FP) PO SCH (10:09)
[2019-01-31] MEDS: PRENATAL VITAMINS W/ FOLIC ACID TABLET (FP) PO SCH (10:09)
[2019-01-31] MEDS: ARIPiprazole 10 MG TABLET PO SCH (10:10)
[2019-01-31] MEDS: NICOTINE 21 MG/24 HOURS TOPICAL PATCH TD SCH (10:10)
[2019-01-31] MEDS: hydrOXYzine PAMOATE 25 MG CAPSULE (FP) PO PRN (14:11)
--- NOTE | 2019-01-31 15:00 | PN ---
BHS COWS - Scale Resting Pulse: 1= [place] 81-100 Sweatin= Chills/Flushing Restless Observation: 0= Sits Still Pupil Size: 0= Normal to Room Light Bone or Joint Aches: 1= Mild Discomfort Runny Nose/ Eye Tearin= None GI Upset > 30mins: 0= None Tremor Observation of Outstretched Hands: 1= Tremor [place], Not Seen Yawning Observation: 0= None Anxiety or Irritability: 1=Feels Anxious/Irritable Goose Flesh Skin: 0=Smooth Skin COWS Score: 5 BHS Progress Note (SOAP) Subjective: 38 years old female admitted on 01/27/19 for opiate withdrawal sx management treated with methadone detox regimen feeling better today slept through the night less tremor mild general body ache Objective: 01/31/19 15:02 Vital Signs Temperature 97.6 F 01/31/19 09:38 Pulse Rate 82 01/31/19 09:38 Respiratory Rate 18 01/31/19 09:38 Blood Pressure 129/88 01/31/19 09:38 O2 Sat by Pulse Oximetry (%) Laboratory Last Values WBC 5.4 K/mm3 (4.0-10.0) 01/28/19 08:00 RBC 4.64 M/mm3 (3.60-5.2) 01/28/19 08:00 Hgb 14.2 GM/dL (10.7-15.3) 01/28/19 08:00 Hct 42.5 % (32.4-45.2) 01/28/19 08:00 MCV 91.6 fl (80-96) 01/28/19 08:00 MCH 30.6 pg (25.7-33.7) 01/28/19 08:00 MCHC 33.4 g/dl (32.0-36.0) 01/28/19 08:00 RDW 14.5 % (11.6-15.6) 01/28/19 08:00 Plt Count 188 K/MM3 (134-434) 01/28/19 08:00 MPV 8.9 fl (7.5-11.1) 01/28/19 08:00 Sodium 141 mmol/L (136-145) 01/28/19 08:00 Potassium 4.2 mmol/L (3.5-5.1) 01/28/19 08:00 Chloride 109 mmol/L (98-107) H 01/28/19 08:00 Carbon Dioxide 26 mmol/L (21-32) 01/28/19 08:00 Anion Gap 6 MMOL/L (8-16) L 01/28/19 08:00 BUN 12.6 mg/dL (7-18) 01/28/19 08:00 Creatinine 0.9 mg/dL (0.55-1.3) 01/28/19 08:00 Est GFR (CKD-EPI)AfAm 93.35 01/28/19 08:00 Est GFR (CKD-EPI)NonAf 80.54 01/28/19 08:00 Random Glucose 103 mg/dL (74-106) 01/28/19 08:00 Calcium 8.9 mg/dL (8.5-10.1) 01/28/19 08:00 Total Bilirubin 0.8 mg/dL (0.2-1) 01/28/19 08:00 AST 20 U/L (15-37) 01/28/19 08:00 ALT 39 U/L (13-61) 01/28/19 08:00 Alkaline Phosphatase 115 U/L (45-117) 01/28/19 08:00 Total Protein 6.8 g/dl (6.4-8.2) 01/28/19 08:00 Albumin 3.5 g/dl (3.4-5.0) 01/28/19 08:00 Urine Color Yellow 01/28/19 18:33 Urine Appearance Cloudy 01/28/19 18:33 Urine pH 5.0 (5.0-8.0) D 01/28/19 18:33 Ur Specific [place] 1.023 (1.010-1.035) 01/28/19 18:33 Urine Protein Negative (NEGATIVE) 01/28/19 18:33 Urine Glucose (UA) Negative (NEGATIVE) 01/28/19 18:33 Urine Ketones Negative (NEGATIVE) 01/28/19 18:33 Urine Blood Negative (NEGATIVE) 01/28/19 18:33 Urine Nitrite Negative (NEGATIVE) 01/28/19 18:33 Urine Bilirubin Negative (NEGATIVE) 01/28/19 18:33 Urine Urobilinogen 0.2 mg/dL (0.2-1.0) 01/28/19 18:33 Ur Leukocyte Esterase Negative (NEGATIVE) 01/28/19 18:33 POC Urine HCG, Qual Negative 01/27/19 20:05 RPR Titer Nonreactive (NONREACTIVE) 01/28/19 08:00 lab noted Assessment: 01/31/19 15:03 opiate withdrawal sx Plan: continue methadone detox regimen
[2019-01-31] MEDS: THIAMINE HCL 100 MG TABLET (FP) PO SCH (21:33)
[2019-01-31] MEDS: SUVOREXANT 10 MG TABLET PO PRN (21:35)
[2019-01-31] MEDS ORDERED: CLOTRIMAZOLE 1% CREAM 15 GM TUBE TP SCH (22:00)
[2019-02-01] MEDS ORDERED: METHADONE HCL 5 MG TABLET (FOR DETOX USE ONLY) PO ONE (06:00)
[2019-02-01 07:30] VITALS: BP 97/59; PULSE 64; TEMP 97
--- NOTE | 2019-02-01 14:07 | DS ---
[facility] Detox Discharge Summary Admission Date: 01/27/19 Discharge Date: 02/01/19 - History Present History: Opioid Dependence Additional Comments: 38 years old female admitted on 01/29/19 for opiate withdrawal sx management treated with methadone detox regimen patient is alert oriented x 3 cardiac s1s2 regular rate rhythm respiratory clear lung bilaterally on auscultation abdomen soft no rebound tenderness - Physical Exam Results Vital Signs: Vital Signs Temperature 97 F L 02/01/19 07:27 Pulse Rate 64 02/01/19 07:27 Respiratory Rate 18 02/01/19 07:27 Blood Pressure 97/59 L 02/01/19 07:27 O2 Sat by Pulse Oximetry (%) Pertinent Admission Physical Exam Findings: opiate withdrawal sx Laboratory Last Values WBC 5.4 K/mm3 (4.0-10.0) 01/28/19 08:00 RBC 4.64 M/mm3 (3.60-5.2) 01/28/19 08:00 Hgb 14.2 GM/dL (10.7-15.3) 01/28/19 08:00 Hct 42.5 % (32.4-45.2) 01/28/19 08:00 MCV 91.6 fl (80-96) 01/28/19 08:00 MCH 30.6 pg (25.7-33.7) 01/28/19 08:00 MCHC 33.4 g/dl (32.0-36.0) 01/28/19 08:00 RDW 14.5 % (11.6-15.6) 01/28/19 08:00 Plt Count 188 K/MM3 (134-434) 01/28/19 08:00 MPV 8.9 fl (7.5-11.1) 01/28/19 08:00 Sodium 141 mmol/L (136-145) 01/28/19 08:00 Potassium 4.2 mmol/L (3.5-5.1) 01/28/19 08:00 Chloride 109 mmol/L (98-107) H 01/28/19 08:00 Carbon Dioxide 26 mmol/L (21-32) 01/28/19 08:00 Anion Gap 6 MMOL/L (8-16) L 01/28/19 08:00 BUN 12.6 mg/dL (7-18) 01/28/19 08:00 Creatinine 0.9 mg/dL (0.55-1.3) 01/28/19 08:00 Est GFR (CKD-EPI)AfAm 93.35 01/28/19 08:00 Est GFR (CKD-EPI)NonAf 80.54 01/28/19 08:00 Random Glucose 103 mg/dL (74-106) 01/28/19 08:00 Calcium 8.9 mg/dL (8.5-10.1) 01/28/19 08:00 Total Bilirubin 0.8 mg/dL (0.2-1) 01/28/19 08:00 AST 20 U/L (15-37) 01/28/19 08:00 ALT 39 U/L (13-61) 01/28/19 08:00 Alkaline Phosphatase 115 U/L (45-117) 01/28/19 08:00 Total Protein 6.8 g/dl (6.4-8.2) 01/28/19 08:00 Albumin 3.5 g/dl (3.4-5.0) 01/28/19 08:00 Urine Color Yellow 01/28/19 18:33 Urine Appearance Cloudy 01/28/19 18:33 Urine pH 5.0 (5.0-8.0) D 01/28/19 18:33 Ur Specific [place] 1.023 (1.010-1.035) 01/28/19 18:33 Urine Protein Negative (NEGATIVE) 01/28/19 18:33 Urine Glucose (UA) Negative (NEGATIVE) 01/28/19 18:33 Urine Ketones Negative (NEGATIVE) 01/28/19 18:33 Urine Blood Negative (NEGATIVE) 01/28/19 18:33 Urine Nitrite Negative (NEGATIVE) 01/28/19 18:33 Urine Bilirubin Negative (NEGATIVE) 01/28/19 18:33 Urine Urobilinogen 0.2 mg/dL (0.2-1.0) 01/28/19 18:33 Ur Leukocyte Esterase Negative (NEGATIVE) 01/28/19 18:33 POC Urine HCG, Qual Negative 01/27/19 20:05 RPR Titer Nonreactive (NONREACTIVE) 01/28/19 08:00 lab noted - Treatment Hospital Course: Detox Protocol Followed, Detoxed Safely, Responded well, Discharged Condition Good, Rehab Referral Accepted Patient [facility] - Medication Discharge Medications: Ambulatory Orders Lisinopril 10 mg PO DAILY 10/22/18 Naloxone HCl [Narcan] 4 mg NS ASDIR PRN #1 spray 01/28/19 - Diagnosis (1) Opioid dependence with withdrawal Status: Acute (2) Positive PPD Status: Resolved (3) Substance induced mood disorder Status: Suspected (4) Hepatitis C carrier Status: Chronic (5) Nicotine dependence Status: Acute Qualifiers: Nicotine product type: cigarettes Substance use status: in withdrawal Qualified Code(s): F17.213 - Nicotine dependence, cigarettes, with withdrawal - AMA Did Patient Leave Against Medical Advice: No COWS (PN) - Opiate Withdrawal Resting Pulse: 0= [place] 80 or Below Sweatin= Chills/Flushing Restless Observation: 0= Sits Still Pupil Size: 0= Normal to Room Light Bone or Joint Aches: 1= Mild Discomfort Runny Nose/ Eye Tearin= None GI Upset > 30mins: 0= None Tremor Observation of Outstretched Hands: 0= None Yawning Observation: 0= None Anxiety or Irritability: 1=Feels Anxious/Irritable Goose Flesh Skin: 0=Smooth Skin COWS Score: 3
== END 2019-02-01 09:03 | disposition home or self-care (01) | DRG 773 ==
LOC: YASAS 14:42 → Y3N 20:11
PROVIDERS: ADMIT Allergy & Immunology; ATTEND Allergy & Immunology
PROC: HZ2ZZZZ Detoxification Services for Substance Abuse Treatment (ICD-10-PCS; principal; 2019-01-27)
DX: F11.23 Opioid dependence with withdrawal (principal); F14.20 Cocaine dependence, uncomplicated; F12.20 Cannabis dependence, uncomplicated; F17.210 Nicotine dependence, cigarettes, uncomplicated; F19.282 Other psychoactive substance dependence with psychoactive substance-induced sleep disorder; F19.24 Other psychoactive substance dependence with psychoactive substance-induced mood disorder; F32.9 Major depressive disorder, single episode, unspecified; B18.2 Chronic viral hepatitis C; R76.11 Nonspecific reaction to tuberculin skin test without active tuberculosis; Z91.5 Personal history of self-harm; Z91.19 Patient's noncompliance with other medical treatment and regimen; Z88.2 Allergy status to sulfonamides; Z91.018 Allergy to other foods; Z59.0 Homelessness
CPT/HCPCS: 36415; 71046-TC-FY; 80053; 81003; 81025; 85027; 86593; 93005; 93010; J0735

== ENCOUNTER 2019-05-11 16:55 | Inpatient (IN) | payer OTHER ==
--- NOTE | 2019-05-11 17:45 | HP ---
COWS - Scale Resting Pulse: 0= [place] 80 or Below Sweatin= Chills/Flushing Restless Observation: 3= Extraneous Movement Pupil Size: 0= Normal to Room Light Bone or Joint Aches: 4=Acute Joint/Muscle Pain Runny Nose/ Eye Tearin= Nasal Congestion GI Upset > 30mins: 2= Nausea/Diarrhea Tremor Observation: 0= None Yawning Observation: 1= 1-2x During Session Anxiety or Irritability: 2=Irritable/Anxious Goose Flesh Skin: 0=Smooth Skin COWS Score: 14 CIWA Score - Admission Criteria OASAS Guidelines: Admission for Medically Managed Detox: Requires at least one of the followin. CIWA greater than 12 2. Seizures within the past 24 hours 3. Delirium tremens within the past 24 hours 4. Hallucinations within the past 24 hours 5. Acute intervention needed for co occurring medical disorder 6. Acute intervention needed for co occurring psychiatric disorder 7. Severe withdrawal that cannot be handled at a lower level of care (continued vomiting, continued diarrhea, abnormal vital signs) requiring intravenous medication and/or fluids 8. Admitting History and Physical - Past Medical History ...LMP: 12/08/18 - Smoking History Smoking history: Current every day smoker Have you smoked in the past 12 months: Yes Aproximately how many cigarettes per day: 20 - Alcohol/Substance Use Hx Alcohol Use: No Admission ROS [facility] Chief Complaint: c/o heroin withdrawal Allergies/Adverse Reactions: Allergies Allergy/AdvReac Type Severity Reaction Status Date / Time Sulfa (Sulfonamide Allergy Hives Verified 05/11/19 18:07 Antibiotics) walnut Allergy Rash Verified 05/11/19 18:07 History of Present Illness: HERE FOR HEROIN DETOX. CLIENT IS SELF REFERRED. KNOWN TO PROGRAM. CLIENT REPORTS RELAPSING 3 WEEKS AGO AFTER BEING CLEAN FOR 2 MONTHS. SHE REPORTS DAILY HEROIN USE. VIA IV. LAST USE EARLIER TODAY. SHE ALSO REPORTS COCAINE ABUSE. DENIES HX/O OVERDOSE, BLACKOUTS, SI/HI, AVH. LONGEST CLEAN TIME 3 YEARS. LIVES ALONE, UNEMPLOYED, DENIES LEGALS Exam Limitations: No Limitations - Ebola screening Have you traveled outside of the country in the last 21 days: No Have you had contact with anyone from an Ebola affected area: No Have you been sick,other than usual withdrawal symptoms: No Do you have a fever: No - Review of Systems Constitutional: Loss of Appetite, Malaise, Night Sweats, Changes in sleep EENT: reports: Nose Congestion, Dental Problems (MISSING TEETH) Respiratory: reports: No Symptoms reported Cardiac: reports: No Symptoms Reported GI: reports: Nausea, Poor Appetite, Poor Fluid Intake, Abdominal cramping : reports: No Symptoms Reported Musculoskeletal: reports: No Symptoms Reported Integumentary: reports: Sweating Neuro: reports: Seizure (LAST EPISODE 6 YEARS AGO) Endocrine: reports: No Symptoms Reported Hematology: reports: No Symptoms Reported Psychiatric: reports: Orientated x3, Anxious Other Systems: Reviewed and Negative Patient History - Patient Medical History Hx Anemia: No Hx Asthma: No Hx Chronic Obstructive Pulmonary Disease (COPD): No Hx Cancer: No Hx Cardiac Disorders: No Hx Congestive Heart Failure: No Hx Hypertension: No Hx Hypercholesterolemia: No Hx Pacemaker: No HX Cerebrovascular Accident: No Hx Seizures: No Hx Dementia: No Hx Diabetes: No Hx Gastrointestinal Disorders: No Hx Liver Disease: No Hx Genitourinary Disorders: No Hx Sexually Transmitted Disorders: No Hx Renal Disease (ESRD): No Hx Thyroid Disease: No Hx Human Immunodeficiency Virus (HIV): No Hx Hepatitis C: Yes (NO TREATMENT) Hx Depression: Yes (non complaint with ambilify/lexapro/seroquel) Hx Suicide Attempt: No Hx Bipolar Disorder: No Hx Schizophrenia: No - Patient Surgical History Past Surgical History: Yes Hx Neurologic Surgery: No Hx Cataract Extraction: No Hx Cardiac Surgery: No Hx Lung Surgery: No Hx Breast Surgery: No Hx Breast Biopsy: No Hx Abdominal Surgery: No Hx Appendectomy: No Hx Cholecystectomy: No Hx Genitourinary Surgery: No Hx Section: Yes (21 YRS AGO) Hx Orthopedic Surgery: No Anesthesia Reaction: No - PPD History Previous Implant?: Yes Documented Results: Positive w/o proof Implanted On Prior R Admission?: Yes Date: 10/26/18 Results: tb gold + PPD to be Administered?: No - Reproductive History Patient is a Female of Child Bearing Age (11 -55 yrs old): Yes Last Menstrual Period: 05/08/19 LMP comment: IRREG Patient : Yes (NEG) - Smoking Cessation Smoking history: Current every day smoker Have you smoked in the past 12 months: Yes Aproximately how many cigarettes per day: 20 Cigars Per Day: 0 Hx Chewing Tobacco Use: No Initiated information on smoking cessation: Yes 'Breaking Loose' booklet given: 05/11/19 - Substance & Tx. History Hx Alcohol Use: No Hx Substance Use: Yes Substance Use Type: Cocaine, Heroin Hx Substance Use Treatment: Yes ([facility]) - Substances abused Heroin Substance route: Injection Frequency: Daily Amount used: 8 BAGS Age of first use: 15 Date of last use: 05/11/19 (1 BAGS) Cocaine Substance route: Injection Frequency: Daily Amount used: $50 Age of first use: 20 Date of last use: 05/11/19 (SPEEDBALL) Admission Physical Exam [facility] - Physical General Appearance: Yes: Mild Distress, Moderate Distress, Sweating, Anxious HEENTM: Yes: EOMI, Normocephalic, Normal Voice, GENIE, Pharynx Normal, Nasal Congestion, Other (poor dentition) Respiratory: Yes: Chest Non-Tender, Lungs Clear, Normal Breath Sounds, No Respiratory Distress, No Accessory Muscle Use Neck: Yes: No masses,lesions,Nodules, Supple, Trachea in good position Breast: Yes: Breasts Symetrical Cardiology: Yes: Regular Rhythm, Regular Rate, S1, S2 Abdominal: Yes: Normal Bowel Sounds, Non Tender, Soft Genitourinary: Yes: Within Normal Limits (no c/o offered) Back: Yes: Normal Inspection Musculoskeletal: Yes: full range of Motion, Other (left pointer finger deformity ) Extremities: Yes: Normal Capillary Refill, Non-Tender Neurological: Yes: Fully Oriented, Alert, Motor Strength 5/5, Depressed Affect ( denies si/hi) Integumentary: Yes: Clammy (cool) Lymphatic: Yes: Within Normal Limits - Diagnostic (1) Cocaine dependence, uncomplicated Current Visit: Yes Status: Acute (2) IVDU (intravenous drug user) Current Visit: Yes Status: Acute (3) Nicotine dependence Current Visit: Yes Status: Chronic Qualifiers: Nicotine product type: cigarettes Substance use status: in withdrawal Qualified Code(s): F17.213 - Nicotine dependence, cigarettes, with withdrawal (4) Opioid dependence with withdrawal Current Visit: Yes Status: Acute (5) Substance-induced sleep disorder Current Visit: Yes Status: Suspected (6) Track rachel due to intravenous drug abuse Current Visit: Yes Status: Acute (7) Hepatitis C carrier Current Visit: Yes Status: Chronic (8) History of positive PPD Current Visit: Yes Status: Chronic (9) Non compliance with medical treatment Current Visit: Yes Status: Suspected (10) Substance induced mood disorder Current Visit: Yes Status: Suspected Cleared for Admission S - Detox or Rehab [facility] Level of Care: Medically Managed Detox Regimen/Protocol: Methadone Claeared for Rehab Admission: No Breathalyzer - Breathalyzer Breathalyzer: 0 Urine Drug Screen - Test Device Lot number: [id number] Expiration date: 10/07/20 - Control Is test valid?: Yes - Results Drug screen NEGATIVE: No Urine drug screen results: LENORE-Cocaine, FEN-Fentanyl, MOP-Opiates Inpatient Rehab Admission - Rehab Decision to Admit Inpatient rehab admission?: No
[2019-05-11] MEDS ORDERED: DICYCLOMINE HCL 10 MG CAPSULE PO PRN (17:53)
[2019-05-11] MEDS ORDERED: BISMUTH SUBSALICYLATE 524 MG/30 ML UD PO PRN (17:53)
[2019-05-11] MEDS ORDERED: MAGNESIUM HYDROX 2400MG/30ML ORAL SUSPENSION 30 ML CUP PO PRN (17:53)
[2019-05-11] MEDS ORDERED: IBUPROFEN 400 MG TABLET (FP) PO PRN (17:53)
[2019-05-11] MEDS ORDERED: NICOTINE POLACRILEX 2 MG GUM BUC PRN (17:53)
[2019-05-11] MEDS ORDERED: MAG HYDROX/AL HYDROX/SIMETH 30 ML UNIT-DOSE CUP PO PRN (17:53)
[2019-05-11] MEDS ORDERED: MENTHOL/PHENOL 1 EACH UD MM PRN (17:53)
[2019-05-11] MEDS ORDERED: P-EPHED 60MG/TRIPROLIDI 2.5MG TABLET PO PRN (17:53)
[2019-05-11] MEDS ORDERED: NALOXONE HCL 0.4 MG/ML VIAL IM PRN (17:53)
[2019-05-11] MEDS ORDERED: ACETAMINOPHEN 325 MG TABLET (FP) PO PRN ×2 (17:53)
[2019-05-11] MEDS ORDERED: guaiFENesin 200 MG/10 ML 10 ML UNIT-DOSE CUPS PO PRN (17:53)
[2019-05-11] MEDS ORDERED: MAGNESIUM CITRATE 300 ML BOTTLE PO PRN (17:53)
[2019-05-11] MEDS ORDERED: cloNIDine HCL 0.1 MG TABLET PO PRN (17:53)
[2019-05-11 18:12] VITALS: BMI 24.8
[2019-05-11] MEDS ORDERED: METHADONE HCL 10 MG TABLET (FOR DETOX USE ONLY) PO ONE (19:00)
[2019-05-11] MEDS ORDERED: ONDANSETRON *ODT* 4 MG TABLET SL ONE (19:00)
[2019-05-11] MEDS: hydrOXYzine PAMOATE 25 MG CAPSULE (FP) PO SCH ×2 (19:04→22:12)
[2019-05-11] MEDS: THIAMINE HCL 100 MG TABLET (FP) PO SCH (22:12)
[2019-05-11] MEDS: MELATONIN 5 MG TABLETS PO SCH (22:12)
[2019-05-12] MEDS: hydrOXYzine PAMOATE 25 MG CAPSULE (FP) PO SCH ×5 (06:31→22:18)
--- NOTE | 2019-05-12 09:17 | PN ---
BHS COWS - Scale Resting Pulse: 0= [place] 80 or Below Sweatin= Chills/Flushing Restless Observation: 0= Sits Still Pupil Size: 1= Pupils >than Normal Bone or Joint Aches: 1= Mild Discomfort Runny Nose/ Eye Tearin= None GI Upset > 30mins: 2= Nausea/Diarrhea Tremor Observation of Outstretched Hands: 1= Tremor [place], Not Seen Yawning Observation: 0= None Anxiety or Irritability: 2=Irritable/Anxious Goose Flesh Skin: 3=[place] COWS Score: 11 BHS Progress Note (SOAP) Subjective: 38 years old female admitted on 05/11/19 for opiate (IV drug user) withdrawal sx management treating with methadone detox regiment history of positive PPD and hepatitis c and cigarette smoker feeling tired resting in bed limited conversation with staff Objective: 05/12/19 09:21 Vital Signs Temperature 97.9 F 05/12/19 08:45 Pulse Rate 70 05/12/19 08:45 Respiratory Rate 17 05/12/19 08:45 Blood Pressure 111/74 05/12/19 08:45 O2 Sat by Pulse Oximetry (%) 05/12/19 09:22 lab pending Assessment: 05/12/19 09:22 opiate withdrawal Plan: methadone regiment
[2019-05-12] MEDS ORDERED: METHADONE HCL 5 MG TABLET (FOR DETOX USE ONLY) ONE (09:59)
[2019-05-12] MEDS ORDERED: METHADONE HCL 10 MG TABLET (FOR DETOX USE ONLY) ONE (09:59)
[2019-05-12] MEDS ORDERED: METHADONE (DETOX) 20 MG, METHADONE (DETOX) 5 MG PO ONE (10:00)
[2019-05-12] MEDS: PRENATAL VITAMINS W/ FOLIC ACID TABLET (FP) PO SCH (10:08)
[2019-05-12] MEDS: METHOCARBAMOL 500 MG TABLET PO PRN (10:08)
[2019-05-12] MEDS: NICOTINE 14 MG/24 HOURS TOPICAL PATCH TD SCH (10:08)
[2019-05-12 10:41] LABS: HEMATOCRIT 39.6 % (32.4-45.2); HEMOGLOBIN 13.2 GM/dL (10.7-15.3); MCH 30.9 pg (25.7-33.7); MCHC 33.2 g/dl (32.0-36.0); MEAN PLT VOLUME 8.9 fl (7.5-11.1); PLATELET COUNT 195 K/MM3 (134-434); RBC 4.26 M/mm3 (3.60-5.2); RDW 13.8 % (11.6-15.6); WHITE BLOOD COUNT 5.7 K/mm3 (4.0-10.0)
[2019-05-12 10:49] LABS: ALBUMIN 3.4 g/dl (3.4-5.0); BILIRUBIN,TOTAL 0.3 mg/dL (0.2-1); BLOOD UREA NITROGEN 18.2 mg/dL (7-18); CALCIUM 8.7 mg/dL (8.5-10.1); CREATININE 0.8 mg/dL (0.55-1.3); POTASSIUM 4.3 mmol/L (3.5-5.1); TOT PROT 6.5 g/dl (6.4-8.2)
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
[2019-05-12] MEDS: THIAMINE HCL 100 MG TABLET (FP) PO SCH (22:19)
[2019-05-12] MEDS: MELATONIN 5 MG TABLETS PO SCH (22:19)
[2019-05-13] MEDS: hydrOXYzine PAMOATE 25 MG CAPSULE (FP) PO SCH ×5 (05:56→22:13)
[2019-05-13] MEDS ORDERED: METHADONE HCL 10 MG TABLET (FOR DETOX USE ONLY) PO ONE (10:00)
[2019-05-13] MEDS: PRENATAL VITAMINS W/ FOLIC ACID TABLET (FP) PO SCH (10:13)
[2019-05-13] MEDS: NICOTINE 14 MG/24 HOURS TOPICAL PATCH TD SCH (10:14)
[2019-05-13] MEDS: METHOCARBAMOL 500 MG TABLET PO PRN (10:14)
--- NOTE | 2019-05-13 10:52 | PN ---
BHS COWS - Scale Resting Pulse: 0= [place] 80 or Below Sweatin= Chills/Flushing Restless Observation: 0= Sits Still Pupil Size: 1= Pupils >than Normal Bone or Joint Aches: 1= Mild Discomfort Runny Nose/ Eye Tearin= None GI Upset > 30mins: 1= Stomach Cramp Tremor Observation of Outstretched Hands: 2= Slight Tremor Visible Yawning Observation: 0= None Anxiety or Irritability: 2=Irritable/Anxious Goose Flesh Skin: 0=Smooth Skin COWS Score: 8 BHS Progress Note (SOAP) Subjective: 38 years old female admitted on 05/11/19 for opiate withdrawal sx management treating with methadone detox regiment feeling ok today mild general body aches discuss medication assisted treatment program Objective: 05/13/19 10:53 Vital Signs Temperature 98.7 F 05/13/19 08:37 Pulse Rate 77 05/13/19 08:37 Respiratory Rate 18 05/13/19 08:37 Blood Pressure 149/92 05/13/19 08:37 O2 Sat by Pulse Oximetry (%) Laboratory Last Values WBC 5.7 K/mm3 (4.0-10.0) 05/12/19 07:30 RBC 4.26 M/mm3 (3.60-5.2) 05/12/19 07:30 Hgb 13.2 GM/dL (10.7-15.3) 05/12/19 07:30 Hct 39.6 % (32.4-45.2) 05/12/19 07:30 MCV 93.0 fl (80-96) 05/12/19 07:30 MCH 30.9 pg (25.7-33.7) 05/12/19 07:30 MCHC 33.2 g/dl (32.0-36.0) 05/12/19 07:30 RDW 13.8 % (11.6-15.6) 05/12/19 07:30 Plt Count 195 K/MM3 (134-434) 05/12/19 07:30 MPV 8.9 fl (7.5-11.1) 05/12/19 07:30 Sodium 142 mmol/L (136-145) 05/12/19 07:30 Potassium 4.3 mmol/L (3.5-5.1) 05/12/19 07:30 Chloride 109 mmol/L (98-107) H 05/12/19 07:30 Carbon Dioxide 29 mmol/L (21-32) 05/12/19 07:30 Anion Gap 4 MMOL/L (8-16) L 05/12/19 07:30 BUN 18.2 mg/dL (7-18) H 05/12/19 07:30 Creatinine 0.8 mg/dL (0.55-1.3) 05/12/19 07:30 Est GFR (CKD-EPI)AfAm 107.64 05/12/19 07:30 Est GFR (CKD-EPI)NonAf 92.87 05/12/19 07:30 Random Glucose 127 mg/dL (74-106) H 05/12/19 07:30 Calcium 8.7 mg/dL (8.5-10.1) 05/12/19 07:30 Total Bilirubin 0.3 mg/dL (0.2-1) 05/12/19 07:30 AST 27 U/L (15-37) 05/12/19 07:30 ALT 29 U/L (13-61) 05/12/19 07:30 Alkaline Phosphatase 102 U/L (45-117) 05/12/19 07:30 Total Protein 6.5 g/dl (6.4-8.2) 05/12/19 07:30 Albumin 3.4 g/dl (3.4-5.0) 05/12/19 07:30 POC Urine HCG, Qual Negative 05/11/19 18:05 RPR Titer Nonreactive (NONREACTIVE) 05/12/19 07:30 lab noted 05/13/19 10:54 glucose elevation bgm x 1 Assessment: 05/13/19 10:55 opiate withdrawal Plan: methadone regiment
[2019-05-13] MEDS: MELATONIN 5 MG TABLETS PO SCH (22:13)
[2019-05-13] MEDS: THIAMINE HCL 100 MG TABLET (FP) PO SCH (22:13)
[2019-05-14] MEDS: hydrOXYzine PAMOATE 25 MG CAPSULE (FP) PO SCH ×5 (05:38→22:45)
[2019-05-14] MEDS ORDERED: METHADONE HCL 5 MG TABLET (FOR DETOX USE ONLY) ONE (09:34)
[2019-05-14] MEDS ORDERED: METHADONE HCL 10 MG TABLET (FOR DETOX USE ONLY) ONE (09:34)
[2019-05-14] MEDS: PRENATAL VITAMINS W/ FOLIC ACID TABLET (FP) PO SCH (09:54)
[2019-05-14] MEDS: NICOTINE 14 MG/24 HOURS TOPICAL PATCH TD SCH (09:55)
[2019-05-14] MEDS ORDERED: METHADONE (DETOX) 10 MG, METHADONE (DETOX) 5 MG PO ONE (10:00)
[2019-05-14 10:41] LABS: URINE APPEARANCE CLOUDY; URINE BILIRUBIN NEGATIVE (NEGATIVE); URINE COLOR YELLOW; URINE GLUCOSE (UA) NEGATIVE (NEGATIVE); URINE KETONE NEGATIVE (NEGATIVE); URINE LEUK ESTERASE NEGATIVE (NEGATIVE); URINE NITRITE NEGATIVE (NEGATIVE); URINE PROTEIN NEGATIVE (NEGATIVE); URINE UROBILINOGEN 0.2 mg/dL (0.2-1.0)
--- NOTE | 2019-05-14 14:34 | PN ---
BHS COWS - Scale Resting Pulse: 0= [place] 80 or Below Sweatin= No chills or Flushing Restless Observation: 1= Difficult to Sit Still Pupil Size: 1= Pupils >than Normal Bone or Joint Aches: 1= Mild Discomfort Runny Nose/ Eye Tearin= Nasal Congestion GI Upset > 30mins: 1= Stomach Cramp Tremor Observation of Outstretched Hands: 1= Tremor [place], Not Seen Yawning Observation: 1= 1-2x During Session Anxiety or Irritability: 2=Irritable/Anxious Goose Flesh Skin: 0=Smooth Skin COWS Score: 9 BHS Progress Note (SOAP) Subjective: alert,irritable,anxious,interrupted sleep,pain in the body,back Objective: 05/14/19 14:33 Vital Signs Temperature 97.1 F L 05/14/19 08:54 Pulse Rate 80 05/14/19 08:54 Respiratory Rate 18 05/14/19 08:54 Blood Pressure 110/75 05/14/19 08:54 O2 Sat by Pulse Oximetry (%) Assessment: 05/14/19 14:33 withdrawal symptom Plan: continue detox methadone regimen
[2019-05-14] MEDS: MELATONIN 5 MG TABLETS PO SCH (22:45)
[2019-05-14] MEDS: THIAMINE HCL 100 MG TABLET (FP) PO SCH (22:45)
[2019-05-15] MEDS: hydrOXYzine PAMOATE 25 MG CAPSULE (FP) PO SCH ×3 (06:08→14:27)
[2019-05-15] MEDS ORDERED: METHADONE HCL 10 MG TABLET (FOR DETOX USE ONLY) PO ONE (10:00)
[2019-05-15] MEDS: NICOTINE 14 MG/24 HOURS TOPICAL PATCH TD SCH (10:05)
[2019-05-15] MEDS: PRENATAL VITAMINS W/ FOLIC ACID TABLET (FP) PO SCH (10:05)
--- NOTE | 2019-05-15 13:06 | PN ---
BHS COWS - Scale Resting Pulse: 0= [place] 80 or Below Sweatin= No chills or Flushing Restless Observation: 0= Sits Still Pupil Size: 0= Normal to Room Light Bone or Joint Aches: 1= Mild Discomfort Runny Nose/ Eye Tearin= None GI Upset > 30mins: 0= None Tremor Observation of Outstretched Hands: 0= None Yawning Observation: 0= None Anxiety or Irritability: 2=Irritable/Anxious Goose Flesh Skin: 0=Smooth Skin COWS Score: 3 BHS Progress Note (SOAP) Subjective: c/o mild withdrawal symptoms. Objective: 05/15/19 13:05 Vital Signs 05/15/19 05/15/19 06:37 08:45 Temperature 97.1 F L 98.6 F Pulse Rate 59 L 73 Respiratory 18 18 Rate Blood Pressure 106/64 132/84 Laboratory Last Values WBC 5.7 K/mm3 (4.0-10.0) 05/12/19 07:30 RBC 4.26 M/mm3 (3.60-5.2) 05/12/19 07:30 Hgb 13.2 GM/dL (10.7-15.3) 05/12/19 07:30 Hct 39.6 % (32.4-45.2) 05/12/19 07:30 MCV 93.0 fl (80-96) 05/12/19 07:30 MCH 30.9 pg (25.7-33.7) 05/12/19 07:30 MCHC 33.2 g/dl (32.0-36.0) 05/12/19 07:30 RDW 13.8 % (11.6-15.6) 05/12/19 07:30 Plt Count 195 K/MM3 (134-434) 05/12/19 07:30 MPV 8.9 fl (7.5-11.1) 05/12/19 07:30 Sodium 142 mmol/L (136-145) 05/12/19 07:30 Potassium 4.3 mmol/L (3.5-5.1) 05/12/19 07:30 Chloride 109 mmol/L (98-107) H 05/12/19 07:30 Carbon Dioxide 29 mmol/L (21-32) 05/12/19 07:30 Anion Gap 4 MMOL/L (8-16) L 05/12/19 07:30 BUN 18.2 mg/dL (7-18) H 05/12/19 07:30 Creatinine 0.8 mg/dL (0.55-1.3) 05/12/19 07:30 Est GFR (CKD-EPI)AfAm 107.64 05/12/19 07:30 Est GFR (CKD-EPI)NonAf 92.87 05/12/19 07:30 Random Glucose 127 mg/dL (74-106) H 05/12/19 07:30 Calcium 8.7 mg/dL (8.5-10.1) 05/12/19 07:30 Total Bilirubin 0.3 mg/dL (0.2-1) 05/12/19 07:30 AST 27 U/L (15-37) 05/12/19 07:30 ALT 29 U/L (13-61) 05/12/19 07:30 Alkaline Phosphatase 102 U/L (45-117) 05/12/19 07:30 Total Protein 6.5 g/dl (6.4-8.2) 05/12/19 07:30 Albumin 3.4 g/dl (3.4-5.0) 05/12/19 07:30 Urine Color Yellow 05/14/19 08:00 Urine Appearance Cloudy 05/14/19 08:00 Urine pH 5.0 (5.0-8.0) 05/14/19 08:00 Ur Specific [place] 1.031 (1.010-1.035) 05/14/19 08:00 Urine Protein Negative (NEGATIVE) 05/14/19 08:00 Urine Glucose (UA) Negative (NEGATIVE) 05/14/19 08:00 Urine Ketones Negative (NEGATIVE) 05/14/19 08:00 Urine Blood Negative (NEGATIVE) 05/14/19 08:00 Urine Nitrite Negative (NEGATIVE) 05/14/19 08:00 Urine Bilirubin Negative (NEGATIVE) 05/14/19 08:00 Urine Urobilinogen 0.2 mg/dL (0.2-1.0) 05/14/19 08:00 Ur Leukocyte Esterase Negative (NEGATIVE) 05/14/19 08:00 POC Urine HCG, Qual Negative 05/11/19 18:05 RPR Titer Nonreactive (NONREACTIVE) 05/12/19 07:30 Labs noted. Assessment: 05/15/19 13:05 AOX3, in no acute respiratory distress. Full ROM, ambulating in the unit. Mild Withdrawal symptoms. For d/c tomorrow. Plan: continue detox. D/C in AM.
--- NOTE | 2019-05-15 18:13 | DS ---
[facility] Detox Discharge Summary Admission Date: 05/11/19 Discharge Date: 05/15/19 - History Present History: Cocaine Dependence, Opioid Dependence Additional Comments: Patient not examined by this publications writer prior to discharge Pertinent Past History: Hep C, depression - Physical Exam Results Vital Signs: Vital Signs Temperature 98.5 F 05/15/19 12:32 Pulse Rate 80 05/15/19 12:32 Respiratory Rate 16 05/15/19 12:32 Blood Pressure 120/75 05/15/19 12:32 O2 Sat by Pulse Oximetry (%) Pertinent Admission Physical Exam Findings: withdrawal sx Laboratory Last Values WBC 5.7 K/mm3 (4.0-10.0) 05/12/19 07:30 RBC 4.26 M/mm3 (3.60-5.2) 05/12/19 07:30 Hgb 13.2 GM/dL (10.7-15.3) 05/12/19 07:30 Hct 39.6 % (32.4-45.2) 05/12/19 07:30 MCV 93.0 fl (80-96) 05/12/19 07:30 MCH 30.9 pg (25.7-33.7) 05/12/19 07:30 MCHC 33.2 g/dl (32.0-36.0) 05/12/19 07:30 RDW 13.8 % (11.6-15.6) 05/12/19 07:30 Plt Count 195 K/MM3 (134-434) 05/12/19 07:30 MPV 8.9 fl (7.5-11.1) 05/12/19 07:30 Sodium 142 mmol/L (136-145) 05/12/19 07:30 Potassium 4.3 mmol/L (3.5-5.1) 05/12/19 07:30 Chloride 109 mmol/L (98-107) H 05/12/19 07:30 Carbon Dioxide 29 mmol/L (21-32) 05/12/19 07:30 Anion Gap 4 MMOL/L (8-16) L 05/12/19 07:30 BUN 18.2 mg/dL (7-18) H 05/12/19 07:30 Creatinine 0.8 mg/dL (0.55-1.3) 05/12/19 07:30 Est GFR (CKD-EPI)AfAm 107.64 05/12/19 07:30 Est GFR (CKD-EPI)NonAf 92.87 05/12/19 07:30 Random Glucose 127 mg/dL (74-106) H 05/12/19 07:30 Calcium 8.7 mg/dL (8.5-10.1) 05/12/19 07:30 Total Bilirubin 0.3 mg/dL (0.2-1) 05/12/19 07:30 AST 27 U/L (15-37) 05/12/19 07:30 ALT 29 U/L (13-61) 05/12/19 07:30 Alkaline Phosphatase 102 U/L (45-117) 05/12/19 07:30 Total Protein 6.5 g/dl (6.4-8.2) 05/12/19 07:30 Albumin 3.4 g/dl (3.4-5.0) 05/12/19 07:30 Urine Color Yellow 05/14/19 08:00 Urine Appearance Cloudy 05/14/19 08:00 Urine pH 5.0 (5.0-8.0) 05/14/19 08:00 Ur Specific [place] 1.031 (1.010-1.035) 05/14/19 08:00 Urine Protein Negative (NEGATIVE) 05/14/19 08:00 Urine Glucose (UA) Negative (NEGATIVE) 05/14/19 08:00 Urine Ketones Negative (NEGATIVE) 05/14/19 08:00 Urine Blood Negative (NEGATIVE) 05/14/19 08:00 Urine Nitrite Negative (NEGATIVE) 05/14/19 08:00 Urine Bilirubin Negative (NEGATIVE) 05/14/19 08:00 Urine Urobilinogen 0.2 mg/dL (0.2-1.0) 05/14/19 08:00 Ur Leukocyte Esterase Negative (NEGATIVE) 05/14/19 08:00 POC Urine HCG, Qual Negative 05/11/19 18:05 RPR Titer Nonreactive (NONREACTIVE) 05/12/19 07:30 - Treatment Hospital Course: Detox Protocol Followed - Medication Discharge Medications: Ambulatory Orders Lisinopril 10 mg PO DAILY 10/22/18 Naloxone HCl [Narcan] 4 mg NS ASDIR PRN #1 spray 01/28/19 - Diagnosis (1) IVDU (intravenous drug user) Current Visit: Yes Status: Acute (2) Opioid dependence with withdrawal Current Visit: Yes Status: Acute (3) Cocaine dependence, uncomplicated Current Visit: Yes Status: Acute (4) Hepatitis C carrier Current Visit: Yes Status: Chronic (5) Nicotine dependence Current Visit: Yes Status: Acute Qualifiers: Nicotine product type: cigarettes Substance use status: in withdrawal Qualified Code(s): F17.213 - Nicotine dependence, cigarettes, with withdrawal - AMA Did Patient Leave Against Medical Advice: No (Pt. scheduled for d/c on 05/15, requested early d/c)
[2019-05-15 19:14] VITALS: BP 133/78; PULSE 75; TEMP 97.7
[2019-05-16] MEDS ORDERED: METHADONE HCL 5 MG TABLET (FOR DETOX USE ONLY) PO ONE (06:00)
== END 2019-05-15 17:30 | disposition home or self-care (01) | DRG 773 ==
LOC: YASAS 16:55 → Y3N 18:24
PROVIDERS: ADMIT Allergy & Immunology; ATTEND Allergy & Immunology
PROC: HZ2ZZZZ Detoxification Services for Substance Abuse Treatment (ICD-10-PCS; principal; 2019-05-11)
DX: F11.23 Opioid dependence with withdrawal (principal); F14.20 Cocaine dependence, uncomplicated; F17.210 Nicotine dependence, cigarettes, uncomplicated; F19.282 Other psychoactive substance dependence with psychoactive substance-induced sleep disorder; F19.24 Other psychoactive substance dependence with psychoactive substance-induced mood disorder; F32.9 Major depressive disorder, single episode, unspecified; F90.9 Attention-deficit hyperactivity disorder, unspecified type; F41.9 Anxiety disorder, unspecified; G47.00 Insomnia, unspecified; B18.2 Chronic viral hepatitis C; Z62.810 Personal history of physical and sexual abuse in childhood; Z91.410 Personal history of adult physical and sexual abuse; Z91.14 Patient's other noncompliance with medication regimen; Z91.5 Personal history of self-harm; Z56.0 Unemployment, unspecified; Z88.2 Allergy status to sulfonamides; Z91.018 Allergy to other foods
CPT/HCPCS: 36415; 80053; 81003; 81025; 85027; 86593; Q0162

== ENCOUNTER 2022-11-11 11:58 | Inpatient (IN) | payer OTHER ==
[2022-11-11 12:52] VITALS: BMI 18.4
[2022-11-11] MEDS ORDERED: BENZONATATE 200 MG CAPSULE PO PRN (13:02)
[2022-11-11] MEDS ORDERED: hydrOXYzine PAMOATE 25 MG CAPSULE (FP) PO PRN (13:02)
[2022-11-11] MEDS ORDERED: MAG HYDROX/AL HYDROX/SIMETH 30 ML UNIT-DOSE CUP PO PRN (13:02)
[2022-11-11] MEDS ORDERED: IBUPROFEN 400 MG TABLET (FP) PO PRN (13:02)
[2022-11-11] MEDS ORDERED: ACETAMINOPHEN 325 MG TABLET (FP) PO PRN (13:02)
[2022-11-11] MEDS ORDERED: ONDANSETRON *ODT* 4 MG TABLET SL PRN (13:02)
[2022-11-11] MEDS ORDERED: IBUPROFEN 600 MG TABLET (FP) PO PRN (13:02)
[2022-11-11] MEDS ORDERED: POLYETHYLENE GLYCOL (HEALTHYLAX) 3350 17 GM PACKET PO PRN (13:02)
[2022-11-11] MEDS ORDERED: DICYCLOMINE HCL 10 MG CAPSULE PO PRN (13:02)
[2022-11-11] MEDS ORDERED: NALOXONE HCL 0.4 MG/ML VIAL IM PRN (13:02)
[2022-11-11] MEDS ORDERED: MAGNESIUM HYDROX 2400MG/30ML ORAL SUSPENSION 30 ML CUP PO PRN (13:02)
[2022-11-11] MEDS ORDERED: LOPERAMIDE HCL 2 MG CAPSULE PO PRN (13:02)
[2022-11-11] MEDS ORDERED: NICOTINE POLACRILEX 2 MG GUM BUC PRN (13:02)
[2022-11-11] MEDS ORDERED: BISMUTH SUBSALICYLATE 524 MG/30 ML PO PRN (13:02)
[2022-11-11] MEDS ORDERED: NALOXONE HCL (KLOXXADO) 8 MG SPRAY NS PRN (13:02)
[2022-11-11] MEDS ORDERED: P-EPHED 60MG/TRIPROLIDI 2.5MG TABLET PO PRN (13:02)
[2022-11-11] MEDS: NICOTINE 14 MG/24 HOURS TOPICAL PATCH TD SCH (14:51)
[2022-11-11] MEDS: LIDOCAINE 5% TOPICAL PATCH TP SCH (14:51)
[2022-11-11] MEDS: amLODIPine BESYLATE 10 MG TABLET (FP) PO SCH (15:23)
[2022-11-11] MEDS: ASPIRIN COATED 81 MG TABLET.EC PO SCH (15:23)
[2022-11-11] MEDS ORDERED: methaDONE HCL 10 MG TABLET (FOR DETOX USE ONLY) PO ONE (17:00)
[2022-11-11] MEDS ORDERED: FLUCONAZOLE 150 MG TABLET PO ONE (18:00)
[2022-11-11] MEDS: cloNIDine HCL 0.1 MG TABLET PO PRN ×2 (18:13→22:43)
[2022-11-11] MEDS ORDERED: MELATONIN 5 MG TABLETS PO SCH (22:00)
[2022-11-11] MEDS: LIDOCAINE PATCH REMOVAL MC SCH (22:41)
[2022-11-11] MEDS: traZODone HCL 100 MG TABLET (FP) PO SCH (22:41)
[2022-11-11] MEDS: THIAMINE HCL 100 MG TABLET (FP) PO SCH (22:41)
[2022-11-11] MEDS: METHOCARBAMOL 500 MG TABLET PO PRN (22:43)
[2022-11-12] MEDS: cloNIDine HCL 0.1 MG TABLET PO PRN (07:07)
[2022-11-12] MEDS: NICOTINE 14 MG/24 HOURS TOPICAL PATCH TD SCH (09:59)
[2022-11-12] MEDS: PRENATAL VITAMINS W/ FOLIC ACID TABLET (FP) PO SCH (09:59)
[2022-11-12] MEDS: METHOCARBAMOL 500 MG TABLET PO PRN ×2 (10:00→17:12)
[2022-11-12] MEDS: amLODIPine BESYLATE 10 MG TABLET (FP) PO SCH (10:00)
[2022-11-12] MEDS: ASPIRIN COATED 81 MG TABLET.EC PO SCH (10:00)
[2022-11-12] MEDS: LIDOCAINE 5% TOPICAL PATCH TP SCH (10:02)
[2022-11-12 10:27] LABS: POTASSIUM 4.3 mmol/L (3.5-5.1)
[2022-11-12 10:30] LABS: CALCIUM 9.1 mg/dL (8.5-10.1)
[2022-11-12 10:31] LABS: ALBUMIN 3.5 g/dl (3.4-5.0); BLOOD UREA NITROGEN 20.1 mg/dL (7-18)
[2022-11-12 10:34] LABS: CREATININE 0.9 mg/dL (0.55-1.3); HEMATOCRIT 47.6 % (32.4-45.2); HEMOGLOBIN 15.9 GM/dL (10.7-15.3); MCH 30.7 pg (25.7-33.7); MCHC 33.4 g/dl (32.0-36.0); MEAN CELL VOLUME 91.7 fl (80-96); MEAN PLT VOLUME 9.3 fl (7.5-11.1); PLATELET COUNT 164 10^3/uL (134-434); RBC 5.19 M/mm3 (3.60-5.2); WHITE BLOOD COUNT 5.3 K/mm3 (4.0-10.0)
[2022-11-12 10:36] LABS: BILIRUBIN,TOTAL 0.7 mg/dL (0.2-1); TOT PROT 7.1 g/dl (6.4-8.2)
[2022-11-12] MEDS: diazePAM 5 MG TABLET PO PRN ×3 (14:30→22:15)
[2022-11-12] MEDS: BENZOCAINE/MENTHOL (CHLORASEPTIC ) LOZENGE MM PRN ×2 (17:10→22:16)
[2022-11-12] MEDS: guaiFENesin 600 MG TABLET.ER (FP) PO PRN (17:13)
[2022-11-12] MEDS: traZODone HCL 100 MG TABLET (FP) PO SCH (22:14)
[2022-11-12] MEDS: LIDOCAINE PATCH REMOVAL MC SCH (22:16)
[2022-11-12] MEDS: THIAMINE HCL 100 MG TABLET (FP) PO SCH (22:17)
[2022-11-13] MEDS: METHOCARBAMOL 500 MG TABLET PO PRN ×3 (05:27→22:21)
[2022-11-13] MEDS: cloNIDine HCL 0.1 MG TABLET PO PRN ×3 (05:27→21:41)
[2022-11-13] MEDS ORDERED: methaDONE HCL 10 MG TABLET (FOR DETOX USE ONLY) PO ONE (10:00)
[2022-11-13] MEDS: PRENATAL VITAMINS W/ FOLIC ACID TABLET (FP) PO SCH (10:24)
[2022-11-13] MEDS: LIDOCAINE 5% TOPICAL PATCH TP SCH (10:24)
[2022-11-13] MEDS: ASPIRIN COATED 81 MG TABLET.EC PO SCH (10:25)
[2022-11-13] MEDS: amLODIPine BESYLATE 10 MG TABLET (FP) PO SCH (10:25)
[2022-11-13] MEDS: NICOTINE 14 MG/24 HOURS TOPICAL PATCH TD SCH (10:26)
[2022-11-13] MEDS: guaiFENesin 600 MG TABLET.ER (FP) PO PRN (13:07)
[2022-11-13] MEDS ORDERED: LIDOCAINE VISCOUS 2% ORAL/TOP 15 ML UNIT-DOSE CUP MM PRN (14:03)
[2022-11-13] MEDS: BENZOCAINE 20 % GEL TUBE MM SCH ×2 (17:37→22:22)
[2022-11-13 18:24] LABS: HIV INTERPRETATION NEGATIVE (NEGATIVE)
[2022-11-13] MEDS: traZODone HCL 100 MG TABLET (FP) PO SCH (22:21)
[2022-11-13] MEDS: THIAMINE HCL 100 MG TABLET (FP) PO SCH (22:21)
[2022-11-13] MEDS: LIDOCAINE PATCH REMOVAL MC SCH (22:22)
[2022-11-14] MEDS: BENZOCAINE 20 % GEL TUBE MM SCH ×4 (05:28→22:14)
[2022-11-14] MEDS: METHOCARBAMOL 500 MG TABLET PO PRN ×2 (05:29→22:15)
[2022-11-14] MEDS: LIDOCAINE 5% TOPICAL PATCH TP SCH (10:08)
[2022-11-14] MEDS: NICOTINE 14 MG/24 HOURS TOPICAL PATCH TD SCH (10:09)
[2022-11-14] MEDS: amLODIPine BESYLATE 10 MG TABLET (FP) PO SCH (10:09)
[2022-11-14] MEDS: PRENATAL VITAMINS W/ FOLIC ACID TABLET (FP) PO SCH (10:10)
[2022-11-14] MEDS: BENZOCAINE/MENTHOL (CHLORASEPTIC ) LOZENGE MM PRN (10:46)
[2022-11-14] MEDS: diazePAM 5 MG TABLET PO PRN ×2 (11:19→17:34)
[2022-11-14] MEDS: ASPIRIN COATED 81 MG TABLET.EC PO SCH (11:19)
[2022-11-14] MEDS: hydrOXYzine PAMOATE 25 MG CAPSULE (FP) PO PRN ×2 (16:28→22:15)
[2022-11-14] MEDS: traZODone HCL 100 MG TABLET (FP) PO SCH (22:15)
[2022-11-14] MEDS: THIAMINE HCL 100 MG TABLET (FP) PO SCH (22:16)
[2022-11-14] MEDS: LIDOCAINE PATCH REMOVAL MC SCH (22:17)
[2022-11-15] MEDS: BENZOCAINE 20 % GEL TUBE MM SCH ×4 (05:59→22:31)
[2022-11-15] MEDS ORDERED: methaDONE HCL 10 MG TABLET (FOR DETOX USE ONLY) PO ONE (10:00)
[2022-11-15] MEDS: PRENATAL VITAMINS W/ FOLIC ACID TABLET (FP) PO SCH (10:43)
[2022-11-15] MEDS: LIDOCAINE 5% TOPICAL PATCH TP SCH (10:43)
[2022-11-15] MEDS: METHOCARBAMOL 500 MG TABLET PO PRN (10:44)
[2022-11-15] MEDS: hydrOXYzine PAMOATE 25 MG CAPSULE (FP) PO PRN ×3 (10:44→18:46)
[2022-11-15] MEDS: amLODIPine BESYLATE 10 MG TABLET (FP) PO SCH (10:44)
[2022-11-15] MEDS: ASPIRIN COATED 81 MG TABLET.EC PO SCH (10:45)
[2022-11-15] MEDS: NICOTINE 14 MG/24 HOURS TOPICAL PATCH TD SCH (10:48)
[2022-11-15] MEDS ORDERED: cloNIDine HCL 0.1 MG TABLET PO ONE (21:06)
[2022-11-15] MEDS: THIAMINE HCL 100 MG TABLET (FP) PO SCH (22:01)
[2022-11-15] MEDS: traZODone HCL 100 MG TABLET (FP) PO SCH (22:01)
[2022-11-15] MEDS: LIDOCAINE PATCH REMOVAL MC SCH (22:02)
[2022-11-16] MEDS: BENZOCAINE 20 % GEL TUBE MM SCH ×2 (05:56→10:32)
[2022-11-16 06:31] VITALS: RESP 16
[2022-11-16 09:08] VITALS: BP 123/84; PULSE 104; TEMP 98.3
[2022-11-16 09:52] LABS: EPI CELLS >36 /uL (0-25.1); HYALINE CASTS 0 /uL (0-3.1); PH,URINE >= 9.0 (5.0-8.0); URINE APPEARANCE CLOUDY; URINE BACTERIA 179 /uL (0-1359); URINE BILIRUBIN NEGATIVE (NEGATIVE); URINE COLOR YELLOW; URINE GLUCOSE (UA) NEGATIVE (NEGATIVE); URINE KETONE NEGATIVE (NEGATIVE); URINE LEUK ESTERASE 1+ (NEGATIVE); URINE NITRITE NEGATIVE (NEGATIVE); URINE PROTEIN NEGATIVE (NEGATIVE); URINE RBC 4 /uL (0-23.9); URINE UROBILINOGEN 0.2 mg/dL (0.2-1.0); URINE WBC 39 /uL (0-25.8)
[2022-11-16] MEDS: LIDOCAINE 5% TOPICAL PATCH TP SCH (10:31)
[2022-11-16] MEDS: ASPIRIN COATED 81 MG TABLET.EC PO SCH (10:32)
[2022-11-16] MEDS: amLODIPine BESYLATE 10 MG TABLET (FP) PO SCH (10:32)
[2022-11-16] MEDS: METHOCARBAMOL 500 MG TABLET PO PRN (10:32)
[2022-11-16] MEDS: NICOTINE 14 MG/24 HOURS TOPICAL PATCH TD SCH (10:32)
[2022-11-16] MEDS: hydrOXYzine PAMOATE 25 MG CAPSULE (FP) PO PRN (10:32)
[2022-11-16] MEDS: PRENATAL VITAMINS W/ FOLIC ACID TABLET (FP) PO SCH (10:32)
== END 2022-11-16 11:59 | disposition home or self-care (01) | DRG 773 ==
LOC: YASAS 11:58 → Y6N 13:50
PROVIDERS: ADMIT Allergy & Immunology; ATTEND Surgery
PROC: HZ2ZZZZ Detoxification Services for Substance Abuse Treatment (ICD-10-PCS; principal; 2022-11-11)
DX: F11.23 Opioid dependence with withdrawal (principal); F14.20 Cocaine dependence, uncomplicated; F12.20 Cannabis dependence, uncomplicated; F17.210 Nicotine dependence, cigarettes, uncomplicated; F19.280 Other psychoactive substance dependence with psychoactive substance-induced anxiety disorder; F19.282 Other psychoactive substance dependence with psychoactive substance-induced sleep disorder; F19.24 Other psychoactive substance dependence with psychoactive substance-induced mood disorder; F41.9 Anxiety disorder, unspecified; F32.A Depression, unspecified; Z62.810 Personal history of physical and sexual abuse in childhood; Z91.410 Personal history of adult physical and sexual abuse; Z88.2 Allergy status to sulfonamides; Z28.310 Unvaccinated for COVID-19; Z28.9 Immunization not carried out for unspecified reason
CPT/HCPCS: 36415; 80053; 80305; 81003; 81025; 83036; 85027; 86593; 86780; 87389; 87635; 87811; 93005; 93010

== ENCOUNTER 2023-12-30 18:20 | Inpatient (IN) | payer OTHER ==
[2023-12-30 19:51] VITALS: BMI 19.6
[2023-12-30] MEDS ORDERED: LOPERAMIDE HCL 2 MG CAPSULE PO PRN (21:40)
[2023-12-30] MEDS ORDERED: NALOXONE (NARCAN) HCL 4 MG/0.1 ML SPRAY NS PRN (21:40)
[2023-12-30] MEDS ORDERED: BENZONATATE 200 MG CAPSULE PO PRN (21:40)
[2023-12-30] MEDS ORDERED: NALOXONE (NYS OPIOID OVERDOSE PROGRAM) 4 MG/0.1 ML SPRAY NS PRN (21:40)
[2023-12-30] MEDS ORDERED: guaiFENesin 600 MG TABLET.ER (FP) PO PRN (21:40)
[2023-12-30] MEDS ORDERED: BISMUTH SUBSALICYLATE 524 MG/30 ML PO PRN (21:40)
[2023-12-30] MEDS ORDERED: IBUPROFEN 600 MG TABLET (FP) PO PRN (21:40)
[2023-12-30] MEDS ORDERED: DICYCLOMINE HCL 10 MG CAPSULE PO PRN (21:40)
[2023-12-30] MEDS ORDERED: POLYETHYLENE GLYCOL (HEALTHYLAX) 3350 17 GM PACKET PO PRN (21:40)
[2023-12-30] MEDS ORDERED: ONDANSETRON *ODT* 4 MG TABLET SL PRN (21:40)
[2023-12-30] MEDS ORDERED: ACETAMINOPHEN 325 MG TABLET (FP) PO PRN (21:40)
[2023-12-30] MEDS ORDERED: MAGNESIUM HYDROX 2400MG/30ML ORAL SUSPENSION 30 ML CUP PO PRN (21:40)
[2023-12-30] MEDS ORDERED: MAG HYDROX/AL HYDROX/SIMETH 30 ML UNIT-DOSE CUP PO PRN (21:40)
[2023-12-30] MEDS ORDERED: BENZOCAINE/MENTHOL (CHLORASEPTIC ) LOZENGE MM PRN (21:40)
[2023-12-30] MEDS ORDERED: IBUPROFEN 400 MG TABLET (FP) PO PRN (21:40)
[2023-12-31] MEDS: THIAMINE 100 MG TABLET PO SCH (01:12)
[2023-12-31] MEDS: MELATONIN 5 MG TABLETS PO SCH (01:12)
[2023-12-31] MEDS: hydrOXYzine PAMOATE 25 MG CAPSULE (FP) PO PRN (01:20)
[2023-12-31] MEDS: METHOCARBAMOL 500 MG TABLET PO PRN (01:20)
[2023-12-31] MEDS ORDERED: P-EPHED 60MG/TRIPROLIDI 2.5MG TABLET PO PRN (09:01)
[2023-12-31] MEDS: methaDONE HCL 10 MG TABLET (FOR DETOX USE ONLY) PO ONE (09:18)
[2023-12-31] MEDS: PRENATAL VITAMINS W/ FOLIC ACID TABLET (FP) PO SCH (09:19)
[2023-12-31] MEDS: amLODIPine BESYLATE 10 MG TABLET (FP) PO SCH (09:19)
[2023-12-31] MEDS: ASPIRIN COATED 81 MG TABLET.EC PO SCH (09:19)
[2023-12-31] MEDS: NICOTINE 21 MG/24 HOURS TOPICAL PATCH TD SCH (09:21)
[2023-12-31] MEDS: cloNIDine HCL 0.1 MG TABLET PO PRN (12:59)
[2023-12-31 16:23] LABS: HEMATOCRIT 49.4 % (32.4-45.2); HEMOGLOBIN 16.4 GM/dL (10.7-15.3); MCH 29.9 pg (25.7-33.7); MCHC 33.1 g/dl (32.0-36.0); MEAN CELL VOLUME 90.3 fl (80-96); MEAN PLT VOLUME 8.6 fl (7.5-11.1); PLATELET COUNT 243 10^3/uL (134-434); RBC 5.47 M/mm3 (3.60-5.2); RDW 14.9 % (11.6-15.6); WHITE BLOOD COUNT 5.7 K/mm3 (4.0-10.0)
[2023-12-31 16:28] LABS: CHLORIDE 105 mmol/L (98-107); POTASSIUM 3.9 mmol/L (3.5-5.1); SODIUM 140 mmol/L (136-145)
[2023-12-31 16:32] LABS: ANION GAP 4 mmol/L (4-13); BLOOD UREA NITROGEN 20.3 mg/dL (7-18); CALCIUM 10.1 mg/dL (8.5-10.1); CO2 31 mmol/L (21-32); GLUCOSE,RANDOM 117 mg/dL (74-106)
[2023-12-31 16:34] LABS: SGPT/ALT 26 U/L (13-61)
[2023-12-31 16:35] LABS: CREATININE 1.1 mg/dL (0.55-1.3); SGOT/AST 20 U/L (15-37)
[2023-12-31 16:36] LABS: BILIRUBIN,TOTAL 1.2 mg/dL (0.2-1); TOT PROT 7.9 g/dl (6.4-8.2)
[2023-12-31 16:37] LABS: ALK PHOS 104 U/L (45-117)
[2023-12-31] MEDS: QUEtiapine FUMARATE 50 MG TABLET PO SCH (21:20)
[2024-01-02] MEDS: NICOTINE POLACRILEX 4 MG GUM BUC PRN (06:44)
[2024-01-02] MEDS: methaDONE HCL 10 MG TABLET (FOR DETOX USE ONLY) PO ONE (09:48)
[2024-01-03] MEDS: cloNIDine HCL 0.1 MG TABLET PO PRN (09:50)
[2024-01-03] MEDS ORDERED: guaiFENesin 200 MG/10 ML 10 ML UNIT-DOSE CUPS PO PRN (12:36)
[2024-01-04] MEDS: methaDONE HCL 10 MG TABLET (FOR DETOX USE ONLY) PO ONE (10:00)
[2024-01-05 08:55] VITALS: BP 143/77; PULSE 104; RESP 18; TEMP 98.1
== END 2024-01-05 10:12 | disposition home or self-care (01) | DRG 773 ==
LOC: YASAS 18:20 → Y3N 22:53
PROVIDERS: ADMIT Allergy & Immunology; ATTEND Surgery
PROC: HZ2ZZZZ Detoxification Services for Substance Abuse Treatment (ICD-10-PCS; principal; 2023-12-30)
DX: F11.23 Opioid dependence with withdrawal (principal); F14.10 Cocaine abuse, uncomplicated; F17.210 Nicotine dependence, cigarettes, uncomplicated; F19.24 Other psychoactive substance dependence with psychoactive substance-induced mood disorder; F41.1 Generalized anxiety disorder; F32.9 Major depressive disorder, single episode, unspecified; F90.9 Attention-deficit hyperactivity disorder, unspecified type; I10 Essential (primary) hypertension; B18.2 Chronic viral hepatitis C; Z56.0 Unemployment, unspecified; Z59.00 Homelessness unspecified; Z88.2 Allergy status to sulfonamides
CPT/HCPCS: 36415; 80053; 80305; 80307; 81025; 85027; 86593; 86780; 93005; 93010